=== PATIENT | female | born 1990 | race Caucasian/White ===

== ENCOUNTER 2016-09-18 11:54 | Emergency (ER) | payer MEDICAID ==
[2016-09-18] MEDS ORDERED: METOCLOPRAMIDE HCL 10 MG TABLET ONE ×2 (14:10→14:20)
[2016-09-18] MEDS ORDERED: DIPHENHYDRAMINE HCL 25 MG CAPSULE ONE (14:20)
[2016-09-18] MEDS ORDERED: TETRACAINE HCL 0.5% OPH SOLN 2 ML ONE ×2 (14:20→14:21)
== END 2016-09-18 16:00 | disposition home or self-care (01) ==
LOC: ER 11:54
DX: G43.909 Migraine, unspecified, not intractable, without status migrainosus (principal); H10.9 Unspecified conjunctivitis
CPT/HCPCS: 99283; J3490 ×3

== ENCOUNTER 2017-02-24 17:12 | Emergency (ER) | payer SELFPAY ==
--- NOTE | 2017-02-24 19:36 | ER Document Report ---
ED Medical Screen (RME) - General Chief Complaint: Abdominal Pain >50 Stated Complaint: BACK PAIN Time Seen by Provider: 02/24/17 19:35 Notes: Patient reports several days her back. She denies any vaginal symptoms or urinary symptoms. No diarrhea. She has had some nausea. She states that she has recently run out of her progesterone which she takes for "swelling". TRAVEL OUTSIDE OF THE [place] IN LAST 30 DAYS: No - Related Data Allergies/Adverse Reactions: No Known Allergies Allergy (Verified 04/10/16 14:49) Past Medical History - Past Medical History Cardiac Medical History: Denies: Hx Coronary Artery Disease, Hx Heart Attack, Hx Hypertension Pulmonary Medical History: Reports: Hx Pneumonia Denies: Hx Asthma, Hx Bronchitis, Hx COPD Neurological Medical History: Reports: Hx Migraine, Hx Seizures - as and 2013 from infection/fever//meds x 6 months post. Denies: Hx Cerebrovascular Accident Renal/ Medical History: Reports: Hx Kidney Stones. Denies: Hx Peritoneal Dialysis Musculoskeltal Medical History: Reports Hx Arthritis - left hand,knee,shoulder// 2011 last steroid inj to back Psychiatric Medical History: Reports: Hx Depression - and anxiety, PTSD Past Surgical History: Reports: Hx Orthopedic Surgery. Denies: Hx Pacemaker - Immunizations Immunizations up to date: Yes Hx Diphtheria, Pertussis, Tetanus Vaccination: Yes Physical Exam - Vital signs Vitals: Temp Pulse Resp BP Pulse Ox 98.8 F 93 16 120/77 97 02/24/17 17:31 02/24/17 17:31 02/24/17 17:31 02/24/17 17:31 02/24/17 17:31 Course - Vital Signs Vital signs: Temp Pulse Resp BP Pulse Ox 98.8 F 93 16 120/77 97 02/24/17 17:31 02/24/17 17:31 02/24/17 17:31 02/24/17 17:31 02/24/17 17:31
[2017-02-24 20:17] LABS: ABSOLUTE EOSINOPHILS # (AUTO) 0.1 10^3/uL (0.0-0.6); ABSOLUTE MONOCYTES (AUTO) 0.5 10^3/uL (0.1-1.4); BASOPHILS % (AUTO) 0.4 % (0-2); EOSINOPHILS % (AUTO) 1.8 % (0-6); HEMATOCRIT 39.1 % (36.0-47.0); HEMOGLOBIN 13.5 g/dL (12.0-15.5); HGB HCT DIFFERENCE 1.4; LYMPHOCYTES % (AUTO) 39.4 % (13-45); MEAN CORPUSCULAR HEMOGLOBIN 31.4 pg (27.0-33.4); MEAN CORPUSCULAR HGB CONC 34.6 g/dL (32.0-36.0); MEAN CORPUSCULAR VOLUME 91 fl (80-97); RED BLOOD COUNT 4.31 10^6/uL (3.72-5.28); RED CELL DISTRIBUTION WIDTH 13.1 % (11.5-14.0); SEGMENTED NEUTROPHILS % (AUTO) 52.4 % (42-78); WHITE BLOOD COUNT 7.7 10^3/uL (4.0-10.5)
[2017-02-24 20:35] LABS: ALANINE AMINOTRANSFERASE 175 U/L (9-52); ALBUMIN 4.5 g/dL (3.5-5.0); ALKALINE PHOSPHATASE 197 U/L (38-126); ANION GAP 14 (5-19); ASPARTATE AMINO TRANSFERASE 83 U/L (14-36); BILIRUBIN,DIRECT 0.3 mg/dL (0.0-0.4); BILIRUBIN,TOTAL 0.6 mg/dL (0.2-1.3); BLOOD UREA NITROGEN 18 mg/dL (7-20); CALCIUM 9.6 mg/dL (8.4-10.2); CARBON DIOXIDE 21 mmol/L (22-30); CHLORIDE 106 mmol/L (98-107); CREATININE RESULT 0.68 mg/dL (0.52-1.25); GLUCOSE 88 mg/dL (75-110); POTASSIUM 4.1 mmol/L (3.6-5.0); SODIUM 140.7 mmol/L (137-145); TOTAL PROTEIN 7.6 g/dL (6.3-8.2)
[2017-02-24] MEDS ORDERED: OXYCODONE-ACETAMINOPHEN 5-325 MG TABLET PO ONE (20:36)
[2017-02-24] MEDS ORDERED: ONDANSETRON 4 MG TAB.RAPDIS PO ONE (20:36)
--- NOTE | 2017-02-24 20:36 | ER Document Report ---
ED GI/ - General Chief Complaint: Abdominal Pain >50 Stated Complaint: BACK PAIN Time Seen by Provider: 02/24/17 19:35 Notes: Patient is a 26-year-old female presents emergency department complaining of pelvic pain 1 week. Patient states that she has a history of this previously due to her endometriosis which she has been on progesterone for for a couple years but she has not been able to hot die picker her prescription recently because of a lapse in her insurance and she cannot afford it [id number]. Patient describes the pain as a constant ache in her pelvis with associated low back pain. She denies any flank pain, painful urination, dysuria, vaginal irritation , vaginal discharge. Patient states that she does have a history of kidney stones but this feels different. Otherwise denies any nausea, vomiting, diarrhea, constipatio., Fevers or chills TRAVEL OUTSIDE OF THE [place] IN LAST 30 DAYS: No - Related Data Allergies/Adverse Reactions: No Known Allergies Allergy (Verified 04/10/16 14:49) Past Medical History - Social History Smoking Status: Current Every Day Smoker Family History: Reviewed & Not Pertinent Patient has suicidal ideation: No Patient has homicidal ideation: No - Past Medical History Cardiac Medical History: Denies: Hx Coronary Artery Disease, Hx Heart Attack, Hx Hypertension Pulmonary Medical History: Reports: Hx Pneumonia Denies: Hx Asthma, Hx Bronchitis, Hx COPD Neurological Medical History: Reports: Hx Migraine, Hx Seizures - as and 2013 from infection/fever//meds x 6 months post. Denies: Hx Cerebrovascular Accident Renal/ Medical History: Reports: Hx Kidney Stones. Denies: Hx Peritoneal Dialysis Musculoskeltal Medical History: Reports Hx Arthritis - left hand,knee,shoulder// 2012 last steroid inj to back Psychiatric Medical History: Reports: Hx Depression - and anxiety, PTSD Past Surgical History: Reports: Hx Orthopedic Surgery. Denies: Hx Pacemaker - Immunizations Immunizations up to date: Yes Hx Diphtheria, Pertussis, Tetanus Vaccination: Yes Review of Systems - Review of Systems Constitutional: No symptoms reported Cardiovascular: No symptoms reported Respiratory: No symptoms reported Gastrointestinal: No symptoms reported Genitourinary: See HPI Female Genitourinary: See HPI -: Yes All other systems reviewed and negative Physical Exam - Vital signs Vitals: Temp Pulse Resp BP Pulse Ox 98.8 F 93 16 120/77 97 02/24/17 17:31 02/24/17 17:31 02/24/17 17:31 02/24/17 17:31 02/24/17 17:31 - Notes Notes: GENERAL: Alert, interacts well. LUNGS: Clear to auscultation bilaterally, no wheezes, rales, or rhonchi. No respiratory distress. HEART: Regular rate and rhythm. No murmurs, gallops, or rubs. ABDOMEN: Soft, nondistended, nontender. No guarding, rebound, or rigidity.. Bowel sounds present in all 4 quadrants. FEMALE : Normal external exam. No evidence of lesions, lacerations, bruising or vesicles. Speculum exam normal cervix closed. No evidence of vaginal discharge with odor. No evidence of lesions. No vaginal bleeding. Bimanual exam normal no cervical motion tenderness. No adnexal mass or adnexal tenderness. EXTREMITIES: Moves all 4 extremities spontaneously. No edema, radial and dorsalis pedis pulses 2/4 bilaterally. No cyanosis. NEUROLOGICAL: Alert and oriented x4. Normal speech. PSYCH: Normal affect, normal mood. SKIN: Warm, dry, normal turgor. No rashes or lesions noted. Course - Re-evaluation Re-evalutation: 02/24/17 22:01 Patient is a 26-year-old female who is hemodynamically stable, no acute distress and afebrile. Patient's presentation today with low clinical suspicion of any acute abdominal pathology given patient has history of these symptoms before with her endometriosis and she is lapsed on a medication she takes to help with the symptoms. Also lacking evidence of an elevated white blood cell count concerning for leukocytosis. No evidence of anemia. Chemistry does reveal elevated liver enzymes but in comparison to previous evaluations in the emergency department she is a chronic history of this. When addressed at the bedside, she states that she get is aware of this but never followed up with a director of staff development. She does admit to previous history of alcohol abuse. At this time will discharge patient home with minimal pain medication and to follow-up with [facility] and GI. Patient agrees with plan. - Vital Signs Vital signs: Temp Pulse Resp BP Pulse Ox 97.8 F 110 H 16 127/84 H 98 02/24/17 22:12 02/24/17 22:12 02/24/17 22:12 02/24/17 22:12 02/24/17 22:12 - Laboratory Result Diagrams: 02/24/17 19:54 02/24/17 19:54 Laboratory results interpreted by me: 02/24/17 02/24/17 19:54 19:58 Carbon Dioxide 21 L AST 83 H ALT 175 H Alkaline Phosphatase 197 H Urine Protein 30 H Urine Urobilinogen 2.0 H Discharge - Discharge Clinical Impression: Pelvic pain Condition: Good Disposition: HOME, SELF-CARE Instructions: Endometriosis ([facility]) Additional Instructions: Please follow-up with your [facility]. Please also follow-up with the director of staff development listed on her discharge paperwork regarding your elevated liver enzymes. Prescriptions: Ibuprofen [Motrin 800 mg Tablet] 800 mg PO Q8H PRN #30 tab PRN Reason: Tramadol HCl 50 mg PO BID #10 tablet Referrals: JAJA WHITE MD [ACTIVE STAFF] - Follow up in 1 week (Gastroenterology) [facility] [Provider Group] - Follow up in 1 week
[2017-02-24 20:38] LABS: APPEARANCE,URINE SLIGHTLY-CLOUDY; BILIRUBIN,URINE NEGATIVE (NEGATIVE); CALCIUM OXALATE CRYSTALS,URINE MANY /HPF; GLUCOSE, URINE NEGATIVE (NEGATIVE); KETONES,URINE NEGATIVE (NEGATIVE); LEUKOCYTE ESTERASE,URINE NEGATIVE (NEGATIVE); NITRITE,URINE NEGATIVE (NEGATIVE); PROTEIN,URINE 30 mg/dL (NEGATIVE); URINE SPECIFIC GRAVITY 1.033
[2017-02-24 22:12] VITALS: BP 127/84
[2017-02-24 23:01] LABS: CHLAM PCR NOT DETECTED (NOT DETECT)
== END 2017-02-24 22:08 | disposition home or self-care (01) ==
LOC: ER 17:12
DX: R10.2 Pelvic and perineal pain (principal); M54.5 Low back pain; F17.200 Nicotine dependence, unspecified, uncomplicated; Z59.8 Other problems related to housing and economic circumstances; Z87.442 Personal history of urinary calculi
CPT/HCPCS: 99283; 36415; 87210; 85025; 81025; 80053; 81001; 87491; 87591; S0119

== ENCOUNTER 2017-06-28 14:59 | Emergency (ER) | payer MEDICAID ==
--- NOTE | 2017-06-28 15:10 | ER Document Report ---
ED Medical Screen (RME) - General Chief Complaint: Abdominal Pain Stated Complaint: ABDOMINAL PAIN Time Seen by Provider: 06/28/17 15:08 Mode of Arrival: Ambulatory Information source: Patient TRAVEL OUTSIDE OF THE [place] IN LAST 30 DAYS: No - HPI Patient complains to provider of: abd pain; Onset: This morning - pt is G3 approx 8 weeks along with this when she developed L lower abdominal pain earlier today. No bleeding - Related Data Allergies/Adverse Reactions: No Known Allergies Allergy (Verified 04/10/16 14:49) Past Medical History - Past Medical History Cardiac Medical History: Denies: Hx Coronary Artery Disease, Hx Heart Attack, Hx Hypertension Pulmonary Medical History: Reports: Hx Pneumonia Denies: Hx Asthma, Hx Bronchitis, Hx COPD Neurological Medical History: Reports: Hx Migraine, Hx Seizures - as infant and 2013 from infection/fever//meds x 6 months post. Denies: Hx Cerebrovascular Accident Renal/ Medical History: Reports: Hx Kidney Stones. Denies: Hx Peritoneal Dialysis Musculoskeltal Medical History: Reports Hx Arthritis - left hand,knee,shoulder// 2011 last steroid inj to back Psychiatric Medical History: Reports: Hx Depression - and anxiety, PTSD Past Surgical History: Reports: Hx Orthopedic Surgery. Denies: Hx Pacemaker - Immunizations Immunizations up to date: Yes Hx Diphtheria, Pertussis, Tetanus Vaccination: Yes Physical Exam - Vital signs Vitals: Temp Pulse Resp BP Pulse Ox 98.3 F 88 16 122/69 98 06/28/17 15:03 06/28/17 15:03 06/28/17 15:03 06/28/17 15:03 06/28/17 15:03 Course - Vital Signs Vital signs: Temp Pulse Resp BP Pulse Ox 98.3 F 88 16 122/69 98 06/28/17 15:03 06/28/17 15:03 06/28/17 15:03 06/28/17 15:03 06/28/17 15:03
[2017-06-28 16:07] LABS: APPEARANCE,URINE SLIGHTLY-CLOUDY; BILIRUBIN,URINE NEGATIVE (NEGATIVE); COLOR,URINE YELLOW; GLUCOSE, URINE NEGATIVE (NEGATIVE); KETONES,URINE 20 mg/dL (NEGATIVE); LEUKOCYTE ESTERASE,URINE TRACE (NEGATIVE); NITRITE,URINE NEGATIVE (NEGATIVE); PROTEIN,URINE 30 mg/dL (NEGATIVE); URINE SPECIFIC GRAVITY 1.033; UROBILINOGEN,URINE NEGATIVE mg/dL (<2.0)
--- NOTE | 2017-06-28 17:06 | ER Document Report ---
ED GI/ - General Chief Complaint: Abdominal Pain Stated Complaint: ABDOMINAL PAIN Time Seen by Provider: 06/28/17 15:08 Mode of Arrival: Ambulatory Notes: The patient is a 26-year-old female, ~2 months , who presents with a left lower quadrant abdominal crampiness and pain. She said the pain is worse when she bends over and lifts heavy objects at work. She denies vaginal bleeding, fevers, nausea, vomiting, vaginal discharge, dysuria or flank pain. TRAVEL OUTSIDE OF THE [place] IN LAST 30 DAYS: No - Related Data Allergies/Adverse Reactions: No Known Allergies Allergy (Verified 04/10/16 14:49) Past Medical History - General Information source: Patient - Social History Smoking Status: Current Every Day Smoker Family History: Reviewed & Not Pertinent Patient has suicidal ideation: No Patient has homicidal ideation: No - Past Medical History Cardiac Medical History: Denies: Hx Coronary Artery Disease, Hx Heart Attack, Hx Hypertension Pulmonary Medical History: Reports: Hx Pneumonia Denies: Hx Asthma, Hx Bronchitis, Hx COPD Neurological Medical History: Reports: Hx Migraine, Hx Seizures - as and 2013 from infection/fever//meds x 6 months post. Denies: Hx Cerebrovascular Accident Renal/ Medical History: Reports: Hx Kidney Stones. Denies: Hx Peritoneal Dialysis Musculoskeltal Medical History: Reports Hx Arthritis - left hand,knee,shoulder// 2012 last steroid inj to back Psychiatric Medical History: Reports: Hx Depression - and anxiety, PTSD Past Surgical History: Reports: Hx Orthopedic Surgery. Denies: Hx Pacemaker - Immunizations Immunizations up to date: Yes Hx Diphtheria, Pertussis, Tetanus Vaccination: Yes Review of Systems - Review of Systems Notes: REVIEW OF SYSTEMS: CONSTITUTIONAL: -fevers, -chills EENT: -eye pain, -difficulty swallowing, -nasal congestion CARDIOVASCULAR: -chest pain, -syncope. RESPIRATORY: -cough, -SOB GASTROINTESTINAL: +LLQ abdominal pain, -nausea, -vomiting, -diarrhea GENITOURINARY: -dysuria, -hematuria MUSCULOSKELETAL: -back pain, -neck pain SKIN: -rash or skin lesions. HEMATOLOGIC: -easy bruising or bleeding. LYMPHATIC: -swollen, enlarged glands. NEUROLOGICAL: -altered mental status or loss of consciousness, -headache, - neurologic symptoms PSYCHIATRIC: -anxiety, -depression. ALL OTHER SYSTEMS REVIEWED AND NEGATIVE. Physical Exam - Vital signs Vitals: Temp Pulse Resp BP Pulse Ox 98.3 F 88 16 122/69 98 06/28/17 15:03 06/28/17 15:03 06/28/17 15:03 06/28/17 15:03 06/28/17 15:03 - Notes Notes: PHYSICAL EXAMINATION: GENERAL: Well-appearing, well-nourished and in no acute distress. HEAD: Atraumatic, normocephalic. EYES: Pupils equal round and reactive to light, extraocular movements intact, sclera anicteric, conjunctiva are normal. ENT: nares patent, oropharynx clear without exudates. Moist mucous membranes. NECK: Normal range of motion, supple without lymphadenopathy LUNGS: Breath sounds clear to auscultation bilaterally and equal. No wheezes rales or rhonchi. HEART: Regular rate and rhythm without murmurs ABDOMEN: Soft, mild LLQ tenderness, normoactive bowel sounds. No guarding, no rebound. No masses appreciated. EXTREMITIES: Normal range of motion, no pitting or edema. No cyanosis. NEUROLOGICAL: Cranial nerves grossly intact. Normal speech, normal gait. Normal sensory and motor exams. PSYCH: Normal mood, normal affect. SKIN: Warm, Dry, normal turgor, no rashes or lesions noted. Course - Re-evaluation Re-evalutation: Patient appears well. Her abdomen is completely soft and nontender. Ultrasound shows a single intrauterine fetus with estimated gestational age of 11 weeks. Instructed her that she has a placenta previa and that this needs to be monitored during her to make sure that it resolves. Suspect abdominal muscle strain because pain is worse with flexion and extension of her abdominal wall when she lifts objects at work. Given strict return precautions and she understands. - Vital Signs Vital signs: Temp Pulse Resp BP Pulse Ox 98.3 F 88 16 122/69 98 06/28/17 15:03 06/28/17 15:03 06/28/17 15:03 06/28/17 15:03 06/28/17 15:03 - Laboratory Result Diagrams: 06/28/17 16:50 06/28/17 16:50 Laboratory results interpreted by me: 06/28/17 06/28/17 15:21 16:50 Carbon Dioxide 21 L Urine Protein 30 H Urine Ketones 20 H Ur Leukocyte Esterase TRACE H - Diagnostic Test Radiology reviewed: Image reviewed, Reports reviewed Radiology results interpreted by me: OB US: Living IUP EGA 11 weeks 0 days, small subchorionic hemorrhage is no longer identified. Placenta is developing posteriorly, currently covers the internal cervical os with placenta previa. Discharge - Discharge Clinical Impression: Abdominal pain during in first trimester, Placenta previa antepartum in first trimester Condition: Stable Disposition: HOME, SELF-CARE Additional Instructions: : You are . care is best started as early in as possible. If you're unsure about continuing this , you should discuss this with your physician or with hotel dining room cashier at [facility]. You should take only medications approved by your physician. Acetaminophen can safely be taken for minor pains. As a rule, medication for chronic conditions such as asthma or seizures can safely be continued. You should discuss with the physician every medicine you take. Any regular exercise program can be continued. Talk to your physician, however, before engaging in competitive or demanding sports. Alcohol, smoking, and "street drugs" are dangerous to your baby. Cocaine is especially dangerous. Don't use any illicit drugs! THREATENED MISCARRIAGE: You have been evaluated for a possible miscarriage. At this time, there is no indication that a miscarriage will occur. Most women with your symptoms will go on to have a perfectly normal baby. However, careful observation will be necessary. A miscarriage occurs when the fetus is abnormal. There is no medicine or treatment for it. You should rest in bed until the symptoms have resolved. Do not douche or have sex for at least a week, or until OK'd by the doctor. Call the doctor or return for re-examination if there is an increase in bleeding or cramping, or passage of tissue. FOLLOW-UP CARE: If you have been referred to a physician for follow-up care, call the physician s office for an appointment as you were instructed or within the next two days. If you experience worsening or a significant change in your symptoms (very heavy bleeding with large clots of blood, passage of tissue, more severe abdominal / pelvic pain or cramping, feeling faint or severe weakness, fever, etc.), notify the physician immediately or return to the Emergency Department at any time for re-evaluation. OBSTETRIC-GYNECOLOGIC (OB-SUBSTATION SUPERINTENDENT) PHYSICIANS IN [place]: [facility] (Formerly [facility]) [address], [place] [phone] [facility] [address] [place] [address] [phone] For active duty and dependents diagnosed with a threatened or miscarriage, you should follow up in the following manner: Standard patients who have a local civilian provider should follow up with that provider. Patients of the Family Practice Clinic should call your Team Nurse at 8: 00 am the following morning for further instructions. If you are neither a Standard patient nor a patient of the Family Practice Clinic, you should follow up at the [facility] ([facility]) . Patients already enrolled in the [facility] OB Clinic, Prime patients not assigned to the Family Practice Clinic, and Active Duty patients not assigned to [facility] should report to the [facility] Lab at 8:00 am the next morning that the [facility] OB Clinic is open and then you will be seen in the OB Clinic at 11:00 am. Referrals: YONI POLLARD PA-C [Primary Care Provider] - Follow up as needed MICHELLE ALONSO MD [ACTIVE STAFF] - Follow up as needed
--- NOTE | 2017-06-28 17:10 | RADIOLOGY REPORT (SQ) ---
EXAM DESCRIPTION: U/S [id number] TRNABD 1GES W/ODOP COMPLETED DATE/TIME: 06/28/2017 4:37 pm REASON FOR STUDY: L lower abd pain COMPARISON: OB ultrasound 06/21/2017 TECHNIQUE: Transabdominal static and realtime grayscale images acquired of the pelvis. Additional se lected spectral and color Doppler images recorded. All images stored on PACs. bHCG: None available LIMITATIONS: Ovaries not visualized due to adnexal bowel gas FINDINGS: FETUS: Living intrauterine . EGA: 11 weeks 0 days THERESA: 01/17/2018 FHR: 150 beats per minute. SUBCHORIONIC BLEED: Small subchorionic hemorrhage seen on 06/21/2017 is no longer identified. SIZE OF BLEED: Not applicable. Please note that the placenta is posterior, placental edge covers the internal cervical os, with plac enta previa. UTERUS: No masses. No anomalies. Uterus is 12 x 9 x 7 cm in size CERVICAL LENGTH: 3.3 cm Closed. RIGHT ADNEXA: Not visualized due to adnexal bowel gas LEFT ADNEXA: Not visualized due to adnexal bowel gas FREE FLUID: None. OTHER: No other significant finding. IMPRESSION: LIVING INTRAUTERINE . EGA 11 weeks 0 days Small subchorionic hemorrhage seen 06/21/2017 is no longer identified. Placenta is developing posteriorly, currently covers the internal cervical os with placenta previa. Trimester of : First - 0 to 13 weeks. TECHNICAL DOCUMENTATION: JOB ID: [id number] [employer]- All Rights Reserved Reading location - IP/workstation name: [email or web address]
[2017-06-28 17:14] LABS: ABSOLUTE BASOPHILS # (AUTO) 0.1 10^3/uL (0.0-0.2); ABSOLUTE EOSINOPHILS # (AUTO) 0.1 10^3/uL (0.0-0.6); ABSOLUTE LYMPHOCYTES (AUTO) 2.7 10^3/uL (0.5-4.7); ABSOLUTE MONOCYTES (AUTO) 0.5 10^3/uL (0.1-1.4); BASOPHILS % (AUTO) 0.7 % (0-2); EOSINOPHILS % (AUTO) 0.9 % (0-6); HEMATOCRIT 36.1 % (36.0-47.0); HEMOGLOBIN 12.5 g/dL (12.0-15.5); LYMPHOCYTES % (AUTO) 32.4 % (13-45); MEAN CORPUSCULAR HEMOGLOBIN 31.2 pg (27.0-33.4); MEAN CORPUSCULAR HGB CONC 34.5 g/dL (32.0-36.0); MEAN CORPUSCULAR VOLUME 91 fl (80-97); MONOCYTES % (AUTO) 5.5 % (3-13); PLATELET COUNT 241 10^3/uL (150-450); RED BLOOD COUNT 3.99 10^6/uL (3.72-5.28); RED CELL DISTRIBUTION WIDTH 12.7 % (11.5-14.0); SEGMENTED NEUTROPHILS % (AUTO) 60.5 % (42-78); TOTAL CELLS COUNTED % (AUTO) 100 %; WHITE BLOOD COUNT 8.3 10^3/uL (4.0-10.5)
[2017-06-28 17:40] LABS: ALANINE AMINOTRANSFERASE 49 U/L (9-52); ALBUMIN 4.3 g/dL (3.5-5.0); ALKALINE PHOSPHATASE 102 U/L (38-126); ANION GAP 12 (5-19); ASPARTATE AMINO TRANSFERASE 30 U/L (14-36); BILIRUBIN,DIRECT 0.1 mg/dL (0.0-0.4); BILIRUBIN,TOTAL 0.6 mg/dL (0.2-1.3); BLOOD UREA NITROGEN 11 mg/dL (7-20); CALCIUM 9.5 mg/dL (8.4-10.2); CARBON DIOXIDE 21 mmol/L (22-30); CHLORIDE 105 mmol/L (98-107); GLUCOSE 80 mg/dL (75-110); POTASSIUM 4.1 mmol/L (3.6-5.0); SODIUM 138.1 mmol/L (137-145); TOTAL PROTEIN 6.8 g/dL (6.3-8.2)
[2017-06-28 18:15] VITALS: BP 103/70
== END 2017-06-28 18:15 | disposition home or self-care (01) ==
LOC: ER 14:59
DX: O44.01 Complete placenta previa NOS or without hemorrhage, first trimester (principal); O26.891 Other specified pregnancy related conditions, first trimester; R10.32 Left lower quadrant pain; O99.331 Smoking (tobacco) complicating pregnancy, first trimester; Z3A.00 Weeks of gestation of pregnancy not specified
CPT/HCPCS: 36415; 76801; 80053; 81001; 84702; 85025; 99284

== ENCOUNTER 2017-10-01 13:46 | Emergency (ER) | payer MEDICAID ==
[2017-10-01] MEDS ORDERED: ALBUTEROL SULFATE 0.042% NEB (1.25 MG/3 ML) AMPUL NEB ONE (15:02)
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
[2017-10-01 16:20] VITALS: BP 102/63
== END 2017-10-01 16:19 | disposition home or self-care (01) ==
LOC: ER 13:46
DX: J45.901 Unspecified asthma with (acute) exacerbation (principal); R06.02 Shortness of breath; R06.00 Dyspnea, unspecified; O99.332 Smoking (tobacco) complicating pregnancy, second trimester; Z87.442 Personal history of urinary calculi; Z3A.15 15 weeks gestation of pregnancy
CPT/HCPCS: 94640; 99284; J3490

== ENCOUNTER 2017-11-27 15:10 | Outpatient (CLI) | payer MEDICAID ==
[2017-11-27] MEDS ORDERED: CEFTRIAXONE INJ 500 MG VIAL IV ONE (15:23)
[2017-11-27] MEDS ORDERED: RINGERS SOLUTION,LACTATED 1,000 ML IV PRN (15:24)
[2017-11-27] MEDS ORDERED: ACETAMINOPHEN 325 MG TABLET PO ONE (15:46)
[2017-11-27] MEDS ORDERED: CEFTRIAXONE SODIUM 1,000 MG in DEXTROSE 5%-WATER 50 ML IV ONE (16:00)
[2017-11-27] MEDS ORDERED: CEFTRIAXONE INJ 1000 MG VIAL ONE (16:06)
[2017-11-27] MEDS ORDERED: ACETAMINOPHEN 325 MG TABLET ONE (16:06)
[2017-11-27] MEDS ORDERED: ONDANSETRON HCL INJ/PF 4 MG/2 ML SDV ONE (16:13)
[2017-11-27 16:16] LABS: ABSOLUTE EOSINOPHILS # (AUTO) 0.1 10^3/uL (0.0-0.6); ABSOLUTE LYMPHOCYTES (AUTO) 2.2 10^3/uL (0.5-4.7); ABSOLUTE MONOCYTES (AUTO) 0.6 10^3/uL (0.1-1.4); BASOPHILS % (AUTO) 0.1 % (0-2); EOSINOPHILS % (AUTO) 1.5 % (0-6); HEMATOCRIT 28.8 % (36.0-47.0); LYMPHOCYTES % (AUTO) 24.7 % (13-45); MEAN CORPUSCULAR HEMOGLOBIN 31.4 pg (27.0-33.4); MEAN CORPUSCULAR HGB CONC 34.8 g/dL (32.0-36.0); MEAN CORPUSCULAR VOLUME 90 fl (80-97); MONOCYTES % (AUTO) 6.3 % (3-13); PLATELET COUNT 217 10^3/uL (150-450); RED BLOOD COUNT 3.19 10^6/uL (3.72-5.28); RED CELL DISTRIBUTION WIDTH 13.3 % (11.5-14.0); SEGMENTED NEUTROPHILS % (AUTO) 67.4 % (42-78); TOTAL CELLS COUNTED % (AUTO) 100 %
[2017-11-27 16:37] LABS: APPEARANCE,URINE SLIGHTLY-CLOUDY; BILIRUBIN,URINE NEGATIVE (NEGATIVE); COLOR,URINE YELLOW; GLUCOSE, URINE NEGATIVE (NEGATIVE); KETONES,URINE NEGATIVE (NEGATIVE); LEUKOCYTE ESTERASE,URINE TRACE (NEGATIVE); NITRITE,URINE NEGATIVE (NEGATIVE); PROTEIN,URINE NEGATIVE (NEGATIVE); URINE SPECIFIC GRAVITY 1.021
[2017-11-27 17:04] LABS: URINE AMPHETAMINES SCREEN NEGATIVE; URINE BARBITURATES SCREEN NEGATIVE; URINE BENZODIAZEPINES SCREEN NEGATIVE; URINE COCAINE SCREEN NEGATIVE; URINE MARIJUANA (THC) SCREEN NEGATIVE; URINE METHADONE SCREEN NEGATIVE; URINE PHENCYCLIDINE SCREEN NEGATIVE
--- NOTE | 2017-11-27 18:52 | RADIOLOGY REPORT (SQ) ---
EXAM DESCRIPTION: U/S RETROPERITON LTD COMPLETED DATE/TIME: 11/27/2017 6:30 pm REASON FOR STUDY: evaluate left kidney COMPARISON: 10/16/2015 TECHNIQUE: Dynamic and static grayscale images acquired of the kidneys and bladder and recorded on P ACS. Additional selected color Doppler and spectral images recorded. LIMITATIONS: None. FINDINGS: RIGHT KIDNEY: Normal size. Normal echogenicity. No solid or suspicious masses. Mode rate hydronephrosis. No calcifications. LEFT KIDNEY: Normal size. Normal echogenicity. No solid or suspicious masses. Mild hydronephro sis. No calcifications. BLADDER: No masses. OTHER FINDINGS: Intrauterine . IMPRESSION: Moderate right hydronephrosis. Mild left hydronephrosis. TECHNICAL DOCUMENTATION: JOB ID: [id number] [employer]- All Rights Reserved Reading location - IP/workstation name: [email or web address]
--- NOTE | 2017-11-27 19:48 | Non Stress Test Report ---
Non Stress Test Datetime Report Generated by CPN: 11/27/2017 19:48 DEMOGRAPHIC EGA NST: 32.5 INDICATION Indication for Study: Ordered by Provider MONITORING Monitor Explained: Monitor Explained; Test Explained; Patient Verbalized Understanding Time on Monitor: 11/27/2017 15:33 Time off Monitor: 11/27/2017 18:02 NST Duration: 149 NST INTERVENTIONS NST Interventions: None Physician Notified NST: A Garcia CNM BABY A: [id number] BABY A Movement : Present Contraction Frequency : none FHR Baseline : 125 Accelerations : 15X15 Decelerations : None Variability : Moderate 6-25bpm NST Review: Meets Criteria for Reactive NST NST Review and Verified By : Olena Talbot RN NST Results: Reactive NST REPORT Report Trigger: Send Report
== END 2017-11-27 19:45 | disposition home or self-care (01) ==
LOC: LC 15:10
PROVIDERS: ATTEND Student in an Organized Health Care Education/Training Program
PROC: 4A1HXCZ Monitoring of Products of Conception, Cardiac Rate, External Approach (ICD-10-PCS; principal; 2017-11-27)
DX: O47.03 False labor before 37 completed weeks of gestation, third trimester (principal); Z3A.32 32 weeks gestation of pregnancy
CPT/HCPCS: 36415; 87086; 85025; 81001; 80307; 76775; 59899; J3490; J0696; J2405

== ENCOUNTER 2017-11-28 10:28 | Outpatient (CLI) | payer MEDICAID ==
[2017-11-28] MEDS ORDERED: RINGERS SOLUTION,LACTATED 1,000 ML IV ONE (11:37)
[2017-11-28] MEDS ORDERED: CEFTRIAXONE 1 GM/D5W RTU 1 GM/50 ML RTUPB IV SCH (12:00)
[2017-11-28] MEDS ORDERED: CEFTRIAXONE SODIUM 1,000 MG in NORMAL SALINE 50 ML IV SCH (12:00)
[2017-11-28 12:15] LABS: HEMATOCRIT 29.1 % (36.0-47.0); HEMOGLOBIN 10.1 g/dL (12.0-15.5); MEAN CORPUSCULAR HEMOGLOBIN 31.6 pg (27.0-33.4); MEAN CORPUSCULAR HGB CONC 34.8 g/dL (32.0-36.0); MEAN CORPUSCULAR VOLUME 91 fl (80-97); PLATELET COUNT 207 10^3/uL (150-450); RED CELL DISTRIBUTION WIDTH 13.4 % (11.5-14.0); WHITE BLOOD COUNT 7.1 10^3/uL (4.0-10.5)
[2017-11-28] MEDS ORDERED: ACETAMINOPHEN 325 MG TABLET ONE (12:34)
[2017-11-28] MEDS ORDERED: ACETAMINOPHEN 325 MG TABLET PO ONE (13:00)
--- NOTE | 2017-11-28 13:42 | RADIOLOGY REPORT (SQ) ---
EXAM DESCRIPTION: U/S OB LIMITED COMPLETED DATE/TIME: 11/28/2017 1:34 pm REASON FOR STUDY: abruption and placenta and pain all over COMPARISON: None. TECHNIQUE: Limited transvaginal grayscale ultrasound for evaluation of specific requested obstetrica l parameters. LIMITATIONS: None. FINDINGS: CERVICAL LENGTH: 4.1 cm Closed. HUDSON: 11.8 cm. FHR: 153 beats per minute. PRESENTATION: Cephalic. OTHER: Posterior low lying placenta. IMPRESSION: LIMITED OBSTETRICAL ULTRASOUND WITH MEASURED PARAMETERS DELINEATED ABOVE. Posterior low lying placenta. Trimester of : Third trimester - 28 weeks to delivery. TECHNICAL DOCUMENTATION: JOB ID: [id number] [employer]- All Rights Reserved Reading location - IP/workstation name: [email or web address]
--- NOTE | 2017-11-28 14:19 | L&D Progress Notes ---
PROGRESS NOTES Datetime Report Generated by CPN: 11/28/2017 14:19 PROGRESS NOTE Comment: No uc's, Cat 1 strip Sono nl, low lying placenta, no leaking of fluid CBC normal, CBC normal yesterday, UA culture in October was negative so she never had a UTI, urine culture done yesterday is no growth adter 24 hours abd soft, has not c/o about pain Dr. Obando in room to check pt = pelvic pressure due to pain of baby's head and multiparity Pt has hx of PTSD, anxiety and depression D/C home, increase water, maternity belt, out of work until Friday Keep appt at office SIGNATURE SIGNATURE: ,[id number] SIGNATURE: ,[id number] Assignment: Madison Obando MD Signature: with User ID: [email or web address] : with User ID: [email or web address]
--- NOTE | 2017-11-28 14:47 | Non Stress Test Report ---
Non Stress Test Datetime Report Generated by CPN: 11/28/2017 14:46 DEMOGRAPHIC EGA NST: 32.6 INDICATION Indication for Study: Ordered by Provider Indication for Study (NST) Other: R/O PYELONEPHRITIS MONITORING Monitor Explained: Monitor Explained; Test Explained; Patient Verbalized Understanding Time on Monitor: 11/28/2017 10:40 Time off Monitor: 11/28/2017 12:56 NST Duration: 136 NST INTERVENTIONS NST Interventions: PO Hydration; Reposition Patient Physician Notified NST: Dr. Obando BABY A: [id number] BABY A Movement : Present Contraction Frequency : NONE FHR Baseline : 135 Accelerations : 15X15 Decelerations : None Variability : Moderate 6-25bpm NST Review: Meets Criteria for Reactive NST NST Review and Verified By : ISABELA Hoyt Results: Reactive NST REPORT Report Trigger: Send Report
== END 2017-11-28 14:26 | disposition home or self-care (01) ==
LOC: LC 10:28
PROVIDERS: ATTEND Obstetrics & Gynecology
PROC: 4A1HXCZ Monitoring of Products of Conception, Cardiac Rate, External Approach (ICD-10-PCS; principal; 2017-11-28)
DX: O47.03 False labor before 37 completed weeks of gestation, third trimester (principal); Z3A.32 32 weeks gestation of pregnancy
CPT/HCPCS: 59025; 36415; 85027; 76815; J3490; J0696

== ENCOUNTER 2018-01-12 18:25 | Outpatient (CLI) | payer MEDICAID ==
[2018-01-12 19:01] LABS: APPEARANCE,URINE CLOUDY; BILIRUBIN,URINE NEGATIVE (NEGATIVE); COLOR,URINE YELLOW; GLUCOSE, URINE NEGATIVE (NEGATIVE); KETONES,URINE NEGATIVE (NEGATIVE); LEUKOCYTE ESTERASE,URINE SMALL (NEGATIVE); NITRITE,URINE NEGATIVE (NEGATIVE); PROTEIN,URINE NEGATIVE (NEGATIVE); URINE SPECIFIC GRAVITY 1.012; UROBILINOGEN,URINE NEGATIVE mg/dL (<2.0)
[2018-01-12 19:30] LABS: URINE AMPHETAMINES SCREEN NEGATIVE; URINE BARBITURATES SCREEN NEGATIVE; URINE BENZODIAZEPINES SCREEN NEGATIVE; URINE COCAINE SCREEN NEGATIVE; URINE MARIJUANA (THC) SCREEN NEGATIVE; URINE METHADONE SCREEN NEGATIVE; URINE PHENCYCLIDINE SCREEN NEGATIVE
--- NOTE | 2018-01-12 20:22 | Non Stress Test Report ---
Non Stress Test Datetime Report Generated by CPN: 01/12/2018 20:22 DEMOGRAPHIC EGA NST: 39.2 INDICATION Indication for Study: Ordered by Provider MONITORING Monitor Explained: Monitor Explained; Test Explained; Patient Verbalized Understanding Time on Monitor: 01/12/2018 18:43 Time off Monitor: 01/12/2018 19:56 NST Duration: 73 NST INTERVENTIONS NST Interventions: PO Hydration; Reposition Patient; Other Physician Notified NST: Dr. Younger Physician Notified NST: Dr. Younger-Eure BABY A: [id number] BABY A Movement : Present Contraction Frequency : None FHR Baseline : 140 Accelerations : 15X15 Decelerations : None Variability : Moderate 6-25bpm NST Review: Meets Criteria for Reactive NST NST Review and Verified By : ISABELA Somers Results: Reactive NST REPORT Report Trigger: Send Report
== END 2018-01-12 20:36 | disposition home or self-care (01) ==
LOC: LC 18:25
PROVIDERS: ATTEND Obstetrics & Gynecology
PROC: 4A1HXCZ Monitoring of Products of Conception, Cardiac Rate, External Approach (ICD-10-PCS; principal; 2018-01-12)
DX: Z34.93 Encounter for supervision of normal pregnancy, unspecified, third trimester (principal)
CPT/HCPCS: 59025; 80307; 81005

== ENCOUNTER 2018-01-20 20:08 | Inpatient (IN) | payer MEDICAID ==
[2018-01-20 20:44] LABS: APPEARANCE,URINE CLOUDY; BILIRUBIN,URINE NEGATIVE (NEGATIVE); COLOR,URINE YELLOW; GLUCOSE, URINE NEGATIVE (NEGATIVE); KETONES,URINE NEGATIVE (NEGATIVE); LEUKOCYTE ESTERASE,URINE SMALL (NEGATIVE); NITRITE,URINE NEGATIVE (NEGATIVE); PROTEIN,URINE 30 mg/dL (NEGATIVE); URINE SPECIFIC GRAVITY 1.024
[2018-01-20] MEDS ORDERED: RINGERS SOLUTION,LACTATED 1,000 ML IV PRN (20:51)
[2018-01-20] MEDS ORDERED: OXYTOCIN/NORMAL SALINE 20 UNIT/1,000 ML RTUINJ IV PRN (20:55)
[2018-01-20 21:08] LABS: ABSOLUTE BASOPHILS # (AUTO) 0.1 10^3/uL (0.0-0.2); ABSOLUTE EOSINOPHILS # (AUTO) 0.1 10^3/uL (0.0-0.6); ABSOLUTE LYMPHOCYTES (AUTO) 2.3 10^3/uL (0.5-4.7); ABSOLUTE MONOCYTES (AUTO) 0.6 10^3/uL (0.1-1.4); ABSOLUTE NEUT (AUTO) 6.1 10^3/uL (1.7-8.2); BASOPHILS % (AUTO) 0.6 % (0-2); HEMATOCRIT 31.3 % (36.0-47.0); HEMOGLOBIN 11.2 g/dL (12.0-15.5); LYMPHOCYTES % (AUTO) 24.9 % (13-45); MEAN CORPUSCULAR HEMOGLOBIN 31.7 pg (27.0-33.4); MEAN CORPUSCULAR HGB CONC 35.6 g/dL (32.0-36.0); MEAN CORPUSCULAR VOLUME 89 fl (80-97); MONOCYTES % (AUTO) 6.1 % (3-13); PLATELET COUNT 189 10^3/uL (150-450); RED BLOOD COUNT 3.52 10^6/uL (3.72-5.28); RED CELL DISTRIBUTION WIDTH 13.9 % (11.5-14.0); SEGMENTED NEUTROPHILS % (AUTO) 67.4 % (42-78); TOTAL CELLS COUNTED % (AUTO) 100 %
[2018-01-20 21:21] LABS: URINE AMPHETAMINES SCREEN NEGATIVE; URINE BARBITURATES SCREEN NEGATIVE; URINE COCAINE SCREEN NEGATIVE; URINE MARIJUANA (THC) SCREEN NEGATIVE; URINE METHADONE SCREEN NEGATIVE; URINE PHENCYCLIDINE SCREEN NEGATIVE
[2018-01-20 21:26] LABS: URINE BENZODIAZEPINES SCREEN UNCONFIRMED POSITIVE
[2018-01-20] MEDS ORDERED: LIDOCAINE 1% INJ-PF (10 MG/ML) 30 ML SDV ONE (21:27)
[2018-01-20] MEDS ORDERED: OXYTOCIN/NORMAL SALINE 20 UNIT/1,000 ML RTUINJ ONE (21:27)
[2018-01-20] MEDS ORDERED: MISOPROSTOL 0.2 MG TABLET ONE (21:27)
[2018-01-20] MEDS ORDERED: ONDANSETRON HCL INJ/PF 4 MG/2 ML SDV IV ONE (22:38)
[2018-01-20] MEDS ORDERED: ONDANSETRON HCL INJ/PF 4 MG/2 ML SDV ONE (22:39)
[2018-01-20] MEDS ORDERED: EPHEDRINE SULFATE INJ 50 MG/1 ML AMPULE ONE (23:10)
[2018-01-20] MEDS ORDERED: BUPIVACAINE HCL 0.5 % INJ/PF 30 ML SDV ONE (23:11)
[2018-01-20] MEDS ORDERED: FENTANYL/BUPIVACAINE/NS/PF 300 MCG/150 ML RTUINJ EPI ONE (23:11)
[2018-01-20] MEDS ORDERED: ACETAMINOPHEN 325 MG TABLET ONE (23:56)
[2018-01-20] MEDS ORDERED: ACETAMINOPHEN 325 MG TABLET PO ONE (23:58)
--- NOTE | 2018-01-21 00:20 | Admission Physical ---
Datetime Report Generated by CPN: 01/21/2018 00:20 CURRENT ADMISSION Chief Complaint: Uterine Contractions; Suspected Ruptured Membranes Indication for Induction: Postterm; PROM Admit Impression : Term, Intrauterine ; No Active Labor; Ruptured Membranes Admit Plan: Admit to Unit; Initiate Labor Induction Protocol ALLERGIES Medication Allergies: No Medication Allergies: latex (01/12/2018) Latex: No Latex Allergies Food Allergies: none Environmental Allergies: none OBSTETRICAL HISTORY EDC: 01/17/2018 00:00 : 5 Para: 2 Term: 2 : 0 SAB: 1 IAB: 1 Ectopic: 0 Livin Cesareans: 0 VBACs: 0 Multiple Births: 0 Gestational Diabetes: No Rh Sensitization: No Incompetent Cervix: No MIGUEL ÁNGEL: No Infertility: No ART Treatment: No Uterine Anomaly: No IUGR: No Hx Previous C/S: No Macrosomia: No Hx Loss/Stillborn: No PIH: No Hx : No Placenta Previa/Abruption: Yes Depression/PP Depression: No PTL/PROM: No Post Hemorrhage: No Current Procedures: Ultrasound; NST Obstetrical History Comments: G1- 2006 G2- 2010 G3- 2010 IAB G4- 2014 SAB G5- Current, resolved placenta abrubtion in first trimester. SEE RECORDS Alcohol: No Marijuana : No Cocaine: No Other Illicit Drugs: No Cigarettes: Current Everyday Smoker. [id number] Cigarette Frequency: 5 - 10 per day Advised to Stop: Yes MEDICAL HISTORY Diabetes: No Blood Transfusion: No Pulmonary Disease (Asthma, TB): Yes Breast Disease: No Hypertension: No [employer] Surgery: No Heart Disease: No Hosp/Surgery: Yes Autoimmune Disorder: No Anesthetic Complications: No Kidney Disease: No Abnormal Pap Smear: No Neuro/Epilepsy: No Psychiatric Disorders: Yes Other Medical Diseases: Yes Hepatitis/Liver Disease: No Significant Family History: No Varicosities/Phlebitis: No Trauma/Violence : No Thyroid Dysfunction: No Medical History Comments: DEPRESSION; PTSD;OBESITY INFECTIOUS HISTORY Gonorrhea: No Genital Herpes: No Chlamydia: No Tuberculosis: No Syphilis: No Hepatitis: No HIV/AIDS Exposure: No Rash or Viral Illness: No HPV: No PHYSICAL EXAM General: Normal HEENT: Normal Neurologic: Normal Thyroid: Deferred Heart: Normal Lungs: Normal Breast: Deferred Back: Normal Abdomen: Normal Genitourinary Exam: Normal Extremities: Normal DTRs: Normal Pelvic Type: Adequate Vital Signs: Reviewed VAGINAL EXAM Dilatation: 3 Effacement: 50 Station: -2 Contraction Comments: irreg MEMBRANES Membranes: Ruptured Amniotic Fluid Color: Clear FETUS A EGA: 40.4 Monitoring: External US FHR- Baseline: 130 Variability: Moderate 6-25bpm Accelerations: 15X15 Decelerations: None FHR Category: Category I Presentation: Vertex Admit Comment: 27yo at 40+3ega presents with ROM at 1930, clear fluid. NOt in labor - will begin pitocin. GBS negative. Pt with prior child with thalassemia - this baby has different FOB. Depression/Anxiety/PTSD - on klonipin. ASCUS pap with HRHPV - colpo planned for pp. Anticipate . PLANS FOR LABOR AND DELIVERY Labor and Delivery: None Pain Management: Epidural Feeding Preference: Both Benefit of Breast Feed Discussed: Yes INFORMED CONSENT Informed Consent Obtained: Vaginal Delivery; Induction of Labor; Risks, Benefits and Alternatives Discussed Signature: with User ID: [email or web address]
[2018-01-21] MEDS ORDERED: DIPHENHYDRAMINE HCL 25 MG CAPSULE PO PRN (03:25)
[2018-01-21] MEDS ORDERED: PROMETHAZINE HCL INJ 25 MG/1 ML VIAL IV PRN (03:25)
[2018-01-21] MEDS ORDERED: PSEUDOEPHEDRINE HCL 30 MG TABLET PO PRN (03:25)
[2018-01-21] MEDS ORDERED: ZOLPIDEM TARTRATE 5 MG TABLET PO PRN (03:25)
[2018-01-21] MEDS ORDERED: ACETAMINOPHEN WITH CODEINE #3 TABLET PO PRN (03:25)
[2018-01-21] MEDS ORDERED: PROMETHAZINE HCL 25 MG TABLET PO PRN (03:25)
[2018-01-21] MEDS ORDERED: ACETAMINOPHEN 325 MG TABLET PO PRN (03:25)
[2018-01-21] MEDS ORDERED: NA PHOS,M-B/NA PHOS,DI-BA (ADULT) 133 ML ENEMA PR PRN (03:25)
[2018-01-21] MEDS ORDERED: MEASLES,MUMPS&RUBELLA VACC/PF 0.5 ML VIAL SUBCUT PRN (03:25)
[2018-01-21] MEDS ORDERED: DIBUCAINE 1% OINTMENT 28 GM TP PRN (03:25)
[2018-01-21] MEDS ORDERED: GLYCERIN/WITCH HAZEL LEAF 1 EACH MED..PAD TP PRN (03:25)
[2018-01-21] MEDS ORDERED: PROMETHAZINE HCL 25 MG SUPP.RECT PR PRN (03:25)
[2018-01-21] MEDS ORDERED: MAGNESIUM HYDROXIDE SUSP 30 ML UDCUP PO PRN ×2 (03:25→19:52)
[2018-01-21] MEDS ORDERED: BENZOCAINE/MENTHOL AEROSOL SPRAY 56 ML TOP PRN (03:25)
[2018-01-21] MEDS ORDERED: OXYTOCIN/NORMAL SALINE 20 UNIT/1,000 ML RTUINJ IV PRN (03:25)
--- NOTE | 2018-01-21 05:28 | Delivery Summary ---
Del Sum A-C Datetime Report Generated by CPN: 01/21/2018 05:27 DELIVERY PERSONNEL DELIVERY PERSONNEL: [id number] Delivery Doctor:: Harriet Blankenship MD Anesthesiologist:: Juan Wilson MD Labor and Delivery Nurse:: Geraldine Oquendo RN Nursery Nurse:: Alejandra Lutz RN MSN MATERNAL INFORMATION Delivery Anesthesia: Epidural Medications After Delivery: Pitocin Drip 20 Units/1000ml NSS Maternal Complications: None Provider Comments: VMI delivered in ELVI presentation. No nuchal cord. Shoulders and body delivered without difficulty. Cord doubly clamped and cut and to maternal abd. Placenta delivered intact spontaneously. FF at U. No perineal lacerations. Mother and baby stable upon provider leaving the room. LABOR SUMMARY EDC: 01/17/2018 00:00 No. Babies in Womb: 1 Attempted: No Labor Anesthesia: Epidural LABOR INFORMATION Onset of Labor: 01/21/2018 23:47 Complete Dilatation: 01/21/2018 02:42 Oxytocin: Augmentation Group B Beta Strep: Negative Antibiotics # of Doses: 0 Antibiotics Time of Last Dose: N/A Name of Antibiotic Given: N/A Steroids Given: None Reason Steroids Not Administered: Not Applicable MEMBRANES Membranes Rupture Method: Spontaneous Rupture of Membranes: 01/20/2018 19:00 Length of Rupture (hr): 7.78 Amniotic Fluid Color: Moderate Meconium Amniotic Fluid Amount: Small Amniotic Fluid Odor: Normal STAGES OF LABOR Stage 1 hr: -21 Stage 1 min: -5 Stage 2 hr: 0 Stage 2 min: 5 Stage 3 hr: 0 Stage 3 min: 2 Total Time in Labor hr: -20 Total Time in Labor min: -58 VAGINAL DELIVERY Episiotomy: None Laceration #1: None Laceration Extension #1: N/A Laceration Repair: Not Applicable Sponge Count Correct: N/A Sharps Count Correct: N/A CSECTION DELIVERY Primary Indication: N/A Secondary Indication: N/A CSection Incidence: N/A Labor: N/A Elective: N/A CSection Incision: N/A BABY A INFORMATION Delivery Date/Time: 01/21/2018 02:47 Method of Delivery: Vaginal Born in Route : No : N/A Forceps: N/A Vacuum Extraction: N/A Shoulder Dystocia : No PRESENTATION/POSITION BABY A Presentation: Cephalic Cephalic Presentation: Vertex Vertex Position: Left Occipital Anterior Breech Presentation: N/A PLACENTA INFORMATION BABY A Placenta Delivery Time : 01/21/2018 02:49 Placenta Method of Delivery: Spontaneous Placenta Status: Delivered SCORES BABY A Heart Rate 1 min: >100 bpm Resp Effort 1 min: Good Cry Reflex Irritability 1 min: Cough or Sneeze or Pulls Away Muscle Tone 1 min: Active Motion Color 1 min: Blue/Pale SCORE 1 MIN: 8 Heart Rate 5 min: >100 bpm Resp Effort 5 min: Good Cry Reflex Irritability 5 min: Cough or Sneeze or Pulls Away Muscle Tone 5 min: Active Motion Color 5 min: Body [place], Extremities Blue SCORE 5 MIN: 9 INFORMATION BABY A Gestational Age at Delivery: 40.4 Gestational Status: Full Term- 39- 40.6 Weeks Outcome : Liveborn Condition : Stable Sex: Male IDENTIFICATION BABY A Infant Verification Date/Time: 01/21/2018 03:08 ID Band Number: [id number] Mother's Name Verified: Yes Infant RN Verifying Infant: Marichuy Oquendo RN/ Gi Ralph RN WEIGHT/LENGTH BABY A Birthweight (gm): 3230 Infant Weight (lb): 7 Infant Weight (oz): 2 Length (in): 20.00 Length (cm): 50.80 CORD INFORMATION BABY A No. Cord Vessels: 3 Nuchal Cord : N/A Cord Blood Taken: Yes-For Storage (Mom's Blood type +) Suction: Mouth; Nose ASSESSMENT BABY A Skin to Skin: Yes Skin to Skin Time (min): 30 BABY B INFORMATION : N/A SIGNATURES Signature: with User ID: [email or web address]
--- NOTE | 2018-01-21 06:02 | Warning Signs in Babies ---
VOD Warning Signs Datetime Report Generated by [facility]: 01/21/2018 06:02 VOD#[id number] -Warning Signs in Babies: Viewed with Parent(s)/Family (01/21/2018 06:00:Geraldine Oquendo RN)
[2018-01-21] MEDS ORDERED: IBUPROFEN 800 MG TABLET ONE (06:03)
[2018-01-21] MEDS: IBUPROFEN 800 MG TABLET PO SCH ×3 (06:15→21:59)
[2018-01-21] MEDS ORDERED: ACETAMINOPHEN WITH CODEINE #3 TABLET ONE (08:31)
[2018-01-21] MEDS: ACETAMINOPHEN WITH CODEINE #3 TABLET PO PRN ×3 (08:35→16:27)
[2018-01-21] MEDS ORDERED: DOCUSATE SODIUM 100 MG CAPSULE ONE (09:59)
[2018-01-21] MEDS ORDERED: SENNOSIDES/DOCUSATE 8.6-50 MG 1 EACH TABLET ONE (09:59)
[2018-01-21] MEDS ORDERED: FAMOTIDINE 20 MG TABLET ONE (09:59)
[2018-01-21] MEDS ORDERED: PRENATAL VITAMIN W DHA CAPSULE PO ONE (09:59)
[2018-01-21] MEDS ORDERED: SERTRALINE HCL 50 MG TABLET ONE (09:59)
[2018-01-21] MEDS ORDERED: FERROUS SULFATE 325 MG TABLET PO ONE (10:00)
[2018-01-21] MEDS: FERROUS SULFATE 325 MG TABLET PO SCH ×2 (10:06→17:20)
[2018-01-21] MEDS: PRENATAL VITAMIN W DHA CAPSULE PO SCH (10:06)
[2018-01-21] MEDS: SENNOSIDES/DOCUSATE 8.6-50 MG 1 EACH TABLET PO SCH (10:06)
[2018-01-21] MEDS: DOCUSATE SODIUM 100 MG CAPSULE PO SCH ×2 (10:07→17:20)
[2018-01-21] MEDS: SERTRALINE HCL 50 MG TABLET PO SCH (10:07)
[2018-01-21] MEDS: FAMOTIDINE 20 MG TABLET PO SCH ×2 (10:07→21:59)
--- NOTE | 2018-01-21 12:57 | PDOC PROGRESS REPORT ---
Subjective-OB Progress Note for:: 01/21/18 Subjective: 27yo G5 now P3 s/p 10hrs pp. Ambulating and voiding without difficulty. Denies concerns at this time. Physical Exam (OB) Vital Signs: Intake & Output 01/20/18 01/21/18 01/22/18 06:59 06:59 06:59 Weight 107.4 kg - General General Appearance: Appears well In distress: None - PIH/Pre-Eclampsia Headache: Absent Epigastric Pain: No Visual Changes: No - Episiotomy/Laceration Site Condition: N/A - Lochia Lochia Amount: Scant < 10 ml Lochia Color: Rubra/Red - Respiratory Respiratory Status: No respiratory distress - Extremities Upper extremity: Normal inspection Lower extremities: Normal inspection - Neurological Cognition: Normal Orientation: AAOx4 - Psychological Associated symptoms: Normal affect, Normal mood Objective-Diagnostic Laboratory: 01/20/18 20:57 01/20/18 01/20/18 01/20/18 20:20 20:57 20:57 WBC 9.0 RBC 3.52 L Hgb 11.2 L Hct 31.3 L MCV 89 MCH 31.7 MCHC 35.6 RDW 13.9 Plt Count 189 Seg Neutrophils % 67.4 Lymphocytes % 24.9 Monocytes % 6.1 Eosinophils % 1.0 Basophils % 0.6 Absolute Neutrophils 6.1 Absolute Lymphocytes 2.3 Absolute Monocytes 0.6 Absolute Eosinophils 0.1 Absolute Basophils 0.1 Urine Color YELLOW Urine Appearance CLOUDY Urine pH 6.0 Ur Specific [place] 1.024 Urine Protein 30 H Urine Glucose (UA) NEGATIVE Urine Ketones NEGATIVE Urine Blood MODERATE H Urine Nitrite NEGATIVE Ur Leukocyte Esterase SMALL H Blood Type A POSITIVE Antibody Screen NEGATIVE Assessment and Plan(PN) - Assessment and Plan (1) Vaginal delivery Is this a current diagnosis for this admission?: Yes Plan: routine pp care. (2) Meconium in amniotic fluid Is this a current diagnosis for this admission?: Yes Plan: delivered (3) Premature rupture of membranes Qualifiers: PROM onset of labor timing: unspecified duration between rupture of membranes and onset of labor PROM gestational age: full term Qualified Code( s): O42.92 - Full-term premature rupture of membranes, unspecified as to length of time between rupture and onset of labor Is this a current diagnosis for this admission?: Yes Plan: delivered (4) Asthma Qualifiers: Asthma severity: unspecified severity Asthma persistence: unspecified Asthma complication type: unspecified Qualified Code(s): J45.909 - Unspecified asthma, uncomplicated Is this a current diagnosis for this admission?: Yes Plan: monitor for s/s of exacerbation (5) Qualifiers: Weeks of gestation: 40 weeks Qualified Code(s): Z3A.40 - 40 weeks gestation of Is this a current diagnosis for this admission?: Yes Plan: delivered - Time Spent with Patient Time with patient: Less than 15 minutes Smoking Education Provided: Over 3 minutes Medications reviewed and adjusted accordingly: Yes - Disposition Anticipated Discharge: Home Within: within 48 hours
[2018-01-21] MEDS ORDERED: BISACODYL 10 MG SUPP.RECT PR PRN (19:52)
[2018-01-22 07:12] LABS: HEMATOCRIT 30.4 % (36.0-47.0); HEMOGLOBIN 10.5 g/dL (12.0-15.5); MEAN CORPUSCULAR HEMOGLOBIN 31.1 pg (27.0-33.4); MEAN CORPUSCULAR HGB CONC 34.5 g/dL (32.0-36.0); MEAN CORPUSCULAR VOLUME 90 fl (80-97); PLATELET COUNT 177 10^3/uL (150-450); RED BLOOD COUNT 3.38 10^6/uL (3.72-5.28); RED CELL DISTRIBUTION WIDTH 14.4 % (11.5-14.0); WHITE BLOOD COUNT 7.4 10^3/uL (4.0-10.5)
[2018-01-22] MEDS: IBUPROFEN 800 MG TABLET PO SCH ×2 (07:12→13:31)
[2018-01-22] MEDS ORDERED: MEASLES,MUMPS&RUBELLA VACC/PF 0.5 ML VIAL SUBCUT PRN (09:30)
[2018-01-22] MEDS ORDERED: PROMETHAZINE HCL INJ 25 MG/1 ML VIAL IV PRN (09:30)
--- NOTE | 2018-01-22 10:07 | PDOC PROGRESS REPORT ---
Subjective-OB Progress Note for:: 01/22/18 Subjective: Ready for discharge. Physical Exam (OB) Vital Signs: Temp Pulse Resp BP Pulse Ox 98.0 F 89 20 134/82 H 99 01/22/18 09:41 01/22/18 09:41 01/22/18 09:41 01/22/18 09:41 01/22/18 09:41 Intake & Output 01/21/18 01/22/18 01/23/18 06:59 06:59 06:59 Weight 107.4 kg - PIH/Pre-Eclampsia Headache: Absent Epigastric Pain: No Visual Changes: No - Lochia Lochia Amount: Scant < 10 ml Lochia Color: Rubra/Red - Abdomen Description: Soft, Round Hernia Present: No Bowel Sounds: Normoactive Flatus Presence: Present Stool: Yes Fundal Description: Firm, Midline Fundal Height: u/u - u/2 Objective-Diagnostic Laboratory: 01/22/18 07:00 01/22/18 07:00 WBC 7.4 RBC 3.38 L Hgb 10.5 L Hct 30.4 L MCV 90 MCH 31.1 MCHC 34.5 RDW 14.4 H Plt Count 177 Assessment and Plan(PN) - Time Spent with Patient Smoking Education Provided: Over 3 minutes Medications reviewed and adjusted accordingly: Yes - Disposition Anticipated Discharge: Home
--- NOTE | 2018-01-22 10:19 | PDOC DISCHARGE SUMMARY ---
Final Diagnosis Discharge Date: 01/22/18 - Final Diagnosis (1) Meconium in amniotic fluid Is this a current diagnosis for this admission?: Yes (2) Premature rupture of membranes Is this a current diagnosis for this admission?: Yes (3) Vaginal delivery Is this a current diagnosis for this admission?: Yes (4) Asthma Is this a current diagnosis for this admission?: Yes (5) Is this a current diagnosis for this admission?: Yes Discharge Data - Discharge Medication Prescriptions: Ferrous Sulfate [Feosol 325 mg Tablet] 325 mg PO DAILY #30 tablet Home Medications: Pnv No.95/Ferrous Fum/Folic AC [ Multivitamin Tablet] 1 tab PO DAILY Clonazepam [Klonopin 0.5 mg Tablet Rapid Dissolve] 1 tab PO TID 10/21/17 Albuterol Sulfate [Proair HFA Inhalation Aerosol 8.5 gm MDI] 2 puff IH PRN PRN 01/12/18 Sertraline HCl [Zoloft 50 mg Tablet] 50 mg PO DAILY 01/12/18 Ferrous Sulfate [Feosol 325 mg Tablet] 325 mg PO DAILY #30 tablet 01/22/18 Gestational Age: 40.4 wks Reason(s) for Admission: PROM Procedures: Ultrasound Intrapartum Procedure(s): Spontaneous Vaginal Delivery - [place] Data Baby 1 Male at 1 minute: 8 at 5 minutes: 9 Weight: 3.232 kg Home with Mother: Yes Complications: No - Diagnosis Test Laboratory: Temp Pulse Resp BP Pulse Ox 98.0 F 89 20 134/82 H 99 01/22/18 09:41 01/22/18 09:41 01/22/18 09:41 01/22/18 09:41 01/22/18 09:41 01/20/18 01/20/18 01/22/18 20:20 20:57 07:00 RBC 3.52 L 3.38 L Hgb 11.2 L 10.5 L Hct 31.3 L 30.4 L Urine Opiates Screen NEGATIVE - Discharge information/Instructions Discharge Activity: Activity As Tolerated, Balance Activity w/Rest, Pelvic Rest , Slowly Increase Activity, No tub bath Discharge Diet: Regular Disposition: HOME, SELF-CARE Follow up with: [facility] in: 4, Weeks
[2018-01-22] MEDS: PRENATAL VITAMIN W DHA CAPSULE PO SCH (10:28)
[2018-01-22] MEDS: DOCUSATE SODIUM 100 MG CAPSULE PO SCH ×2 (10:28→17:23)
[2018-01-22] MEDS: SENNOSIDES/DOCUSATE 8.6-50 MG 1 EACH TABLET PO SCH (10:28)
[2018-01-22] MEDS: FERROUS SULFATE 325 MG TABLET PO SCH ×2 (10:29→17:22)
[2018-01-22] MEDS: FAMOTIDINE 20 MG TABLET PO SCH (10:29)
[2018-01-22] MEDS: SERTRALINE HCL 50 MG TABLET PO SCH (10:34)
[2018-01-22] MEDS: ACETAMINOPHEN WITH CODEINE #3 TABLET PO PRN (10:34)
[2018-01-22 11:02] VITALS: BP 119/61
== END 2018-01-22 18:00 | disposition home or self-care (01) | DRG 775 ==
LOC: LC 20:08 → LR 20:47 → 2S 01-21 10:30
PROVIDERS: ADMIT Student in an Organized Health Care Education/Training Program; ATTEND Student in an Organized Health Care Education/Training Program
PROC: 10E0XZZ Delivery of Products of Conception, External Approach (ICD-10-PCS; principal; 2018-01-21)
DX: O48.0 Post-term pregnancy (principal); O99.344 Other mental disorders complicating childbirth; F41.8 Other specified anxiety disorders; O99.334 Smoking (tobacco) complicating childbirth; F17.210 Nicotine dependence, cigarettes, uncomplicated; O77.0 Labor and delivery complicated by meconium in amniotic fluid; O42.02 Full-term premature rupture of membranes, onset of labor within 24 hours of rupture; O99.52 Diseases of the respiratory system complicating childbirth; J45.998 Other asthma; Z3A.40 40 weeks gestation of pregnancy; Z37.0 Single live birth
CPT/HCPCS: 36415; 80307; 81005; 84112; 85025; 85027; 86592; 86850; 86900; 86901; G0480; J2405; J2590; J3010; J3490

== ENCOUNTER 2018-04-23 09:57 | Day surgery (SDC) | payer MEDICAID ==
[2018-04-21 12:33] LABS: HEMATOCRIT 39.2 % (36.0-47.0); HEMOGLOBIN 13.3 g/dL (12.0-15.5); MEAN CORPUSCULAR HEMOGLOBIN 30.6 pg (27.0-33.4); MEAN CORPUSCULAR HGB CONC 33.9 g/dL (32.0-36.0); MEAN CORPUSCULAR VOLUME 90 fl (80-97); PLATELET COUNT 270 10^3/uL (150-450); RED BLOOD COUNT 4.34 10^6/uL (3.72-5.28); RED CELL DISTRIBUTION WIDTH 13.6 % (11.5-14.0)
[2018-04-21 12:39] LABS: APPEARANCE,URINE SLIGHTLY-CLOUDY; BILIRUBIN,URINE NEGATIVE (NEGATIVE); COLOR,URINE YELLOW; GLUCOSE, URINE NEGATIVE (NEGATIVE); KETONES,URINE NEGATIVE (NEGATIVE); LEUKOCYTE ESTERASE,URINE NEGATIVE (NEGATIVE); NITRITE,URINE NEGATIVE (NEGATIVE); PROTEIN,URINE NEGATIVE (NEGATIVE); URINE SPECIFIC GRAVITY 1.019; UROBILINOGEN,URINE NEGATIVE mg/dL (<2.0)
[~2018-04-23 09:57] MED LIST: BUPIVACAINE HCL 0.25 % INJ/PF (2.5 MG/1 ML) 30 ML VIAL ONE; LACTATED RINGERS 1000 ML IV PRN
[2018-04-23] MEDS ORDERED: MIDAZOLAM 2 MG/2 ML INJ ONE ×2 (11:42→11:51)
[2018-04-23] MEDS ORDERED: MIDAZOLAM 2 MG/2 ML INJ IV ONE (11:50)
[2018-04-23] MEDS ORDERED: ACETAMINOPHEN 1,000 MG/100 ML RTUPB IV ONE (11:52)
[2018-04-23] MEDS ORDERED: PROPOFOL INJ 200 MG/20 ML VIAL IV ONE (11:52)
[2018-04-23] MEDS ORDERED: HYDROMORPHONE HCL INJ/PF 2 MG/ML AMPULE ONE (11:52)
[2018-04-23] MEDS ORDERED: FENTANYL CITRATE INJ/PF 100 MCG/2 ML AMPUL IV PRN ×3 (12:28)
[2018-04-23] MEDS ORDERED: PROMETHAZINE HCL INJ 25 MG/1 ML VIAL IV PRN ×3 (12:28→13:51)
[2018-04-23] MEDS ORDERED: DIPHENHYDRAMINE HCL 50 MG/ML VIAL IV PRN (12:28)
[2018-04-23] MEDS ORDERED: MEPERIDINE HCL/PF INJ 25 MG/1 ML DISP.SYRIN IV PRN (12:28)
[2018-04-23] MEDS ORDERED: ONDANSETRON HCL INJ/PF 4 MG/2 ML SDV IV PRN (12:28)
[2018-04-23] MEDS ORDERED: OXYCODONE-ACETAMINOPHEN 5-325 MG TABLET PO PRN ×3 (12:28→13:51)
[2018-04-23] MEDS: MEPERIDINE HCL/PF INJ 25 MG/1 ML DISP.SYRIN ONE ×2 (13:15→13:25)
[2018-04-23] MEDS: FENTANYL CITRATE INJ/PF 100 MCG/2 ML AMPUL ONE ×2 (13:20→13:30)
--- NOTE | 2018-04-23 13:21 | Operative Report ---
Operative Report DATE OF SURGERY: 04/23/18 PREOPERATIVE DIAGNOSIS: 1. Multiparity. 2. Completed family status. 3. Suhail ires permanent sterilization POSTOPERATIVE DIAGNOSIS: Same OPERATION: Laparoscopic tubal ligation (bilateral partial salpingectomy) SURGEON: NELIA SNELL ANESTHESIA: GA TISSUE REMOVED OR ALTERED: Partial right and left fallopian tube (fimbriated end) COMPLICATIONS: none ESTIMATED BLOOD LOSS: 20 ml INTRAOPERATIVE FINDINGS: Normal appearing uterus, bilateral tubes and ovaries PROCEDURE: Patient was taken to the operating room where general anesthesia was administered without difficulty. The patient was then prepared and draped in normal sterile fashion in dorsal lithotomy position. Next, a red Tuttle catheter was placed in the patient's bladder and left in place during the entire procedure. Approximately 300 mL's of clear urine was evacuated at the end of the procedure. Next, a bivalve speculum was placed in the patient's vagina and the anterior lip of the cervix was grasped with a single-tooth tenaculum. An acorn manipulator was then introduced into the endocervical canal and as a means to manipulate the uterus during the procedure. The speculum was then removed. Attention was then turned to the patient's abdomen where bupivacaine was inj ected into the umbilicus and a 5 mm vertical incision was made in the umbilicus. A 5 mm trocar sleeve and camera was then introduced into the patient's peritoneal cavity. Once placement was verified, the CO2 gas was turned on. The patient's abdomen was insufflated with CO2 gas. Evaluation of the patient's pelvis and abdomen revealed a normal-appearing uterus, bilateral tubes and ovaries. Pictures were taken. Next, attention was turned to placing a left lateral 5 mm trocar and sleeve. Was placed under direct visualization. Hemostasis was noted. The same was done on the right side. Next, a grasper was used to move the bowel out of the working field and the patient was placed in Trendelenburg. The right tube was grasped and a PDS Endoloop was used to ligate the emigrated end of the tube. The fallopian tube was transected and the suture cut. Hemostasis was noted. The partial tube was then passed off to the Orate. The same procedure was performed on the left side and hemostasis was also noted. The tube was also passed off to the OR tech. Pictures were taken after the procedure, as well as a picture of her liver, which the texture. Normal. The CO2 gas was then turned off and was allowed to escape from the patient's abdomen all instruments were then removed on the patient's abdomen. All 3 port sites were then closed in a subcuticular fashion with 4-0 Monocryl and Dermabond was placed over each incision. Attention was then returned to the patient's vagina where the uterine manipulator was removed from the patient's uterus and vagina. The single-tooth tenaculum was removed and bleeding was noted on the left side. Pressure and Monsel's were used to gain hemostasis. All instruments were then removed patient's vagina. The patient tolerated the procedure well. Sponge, lap, needle and instrument counts were correct x2. Patient was taken to the recovery room in stable condition.
[2018-04-23] MEDS: LORAZEPAM INJ 2 MG/1 ML VIAL ONE ×2 (13:35→13:45)
[2018-04-23] MEDS ORDERED: PROMETHAZINE HCL INJ 25 MG/1 ML VIAL ONE (13:38)
[2018-04-23] MEDS ORDERED: ONDANSETRON HCL INJ/PF 4 MG/2 ML SDV ONE (15:38)
[2018-04-23] MEDS ORDERED: KETOROLAC TROMETHAMINE 60 MG/2 ML SDV ONE (15:38)
[2018-04-23] MEDS ORDERED: GLYCOPYRROLATE 1 MG/5 ML SYRINGE ONE (15:38)
[2018-04-23] MEDS ORDERED: ROCURONIUM BROMIDE INJ 50 MG/5 ML VIAL IV ONE (15:38)
[2018-04-23] MEDS ORDERED: LIDOCAINE 2% INJ-PF (20 MG/ML) 2 ML AMPUL ONE (15:38)
[2018-04-23] MEDS ORDERED: SUCCINYLCHOLINE CHLORIDE INJ 200 MG/10 ML VIAL ONE (15:38)
[2018-04-23] MEDS ORDERED: NEOSTIGMINE METHYLSULFATE 10 MG/10 ML VIAL ONE (15:38)
[2018-04-23] MEDS ORDERED: DEXAMETHASONE SOD PHOSPHATE INJ 4 MG/1 ML VIAL ONE (15:38)
[2018-04-23 16:12] VITALS: BP 114/73
== END 2018-04-23 15:45 | disposition home or self-care (01) ==
LOC: OROUT 09:57
PROVIDERS: ATTEND Obstetrics & Gynecology
DX: Z30.2 Encounter for sterilization (principal); F17.210 Nicotine dependence, cigarettes, uncomplicated; J45.909 Unspecified asthma, uncomplicated; Z79.51 Long term (current) use of inhaled steroids; M79.7 Fibromyalgia; Z79.899 Other long term (current) drug therapy
CPT/HCPCS: 36415; 85027; 81005; 81025; 88302 ×2; 58670; J2250; J3490 ×3; J1100; J1885; J3010; J2175; J1170; J2060; J2550; J0330; J2405; S0020; J2704; J0131; 851

== ENCOUNTER 2019-02-05 08:04 | Emergency (ER) | payer MEDICAID ==
[2019-02-05] MEDS ORDERED: ACETAMINOPHEN 325 MG TABLET PO ONE (08:45)
[2019-02-05] MEDS ORDERED: NORMAL SALINE 1000 ML 2,000 ML IV ONE (08:46)
[2019-02-05] MEDS ORDERED: KETOROLAC TROMETHAMINE INJ/PF 30 MG/1 ML SDV IV ONE (08:46)
[2019-02-05] MEDS ORDERED: ONDANSETRON HCL INJ/PF 4 MG/2 ML SDV IV ONE ×2 (08:46→14:24)
[2019-02-05] MEDS ORDERED: FENTANYL CITRATE INJ/PF 100 MCG/2 ML AMPUL IV ONE (08:47)
[2019-02-05] MEDS ORDERED: FENTANYL CITRATE INJ/PF 100 MCG/2 ML AMPUL ONE (09:00)
[2019-02-05] MEDS ORDERED: ACETAMINOPHEN 325 MG TABLET ONE (09:00)
[2019-02-05] MEDS ORDERED: KETOROLAC TROMETHAMINE INJ/PF 30 MG/1 ML SDV ONE (09:00)
[2019-02-05] MEDS ORDERED: ONDANSETRON HCL INJ/PF 4 MG/2 ML SDV ONE (09:00)
[2019-02-05 09:01] LABS: ABSOLUTE LYMPHOCYTES (AUTO) 0.8 10^3/uL (0.5-4.7); ABSOLUTE MONOCYTES (AUTO) 0.1 10^3/uL (0.1-1.4); ABSOLUTE NEUT (AUTO) 4.5 10^3/uL (1.7-8.2); BASOPHILS % (AUTO) 0.4 % (0-2); EOSINOPHILS % (AUTO) 0.5 % (0-6); HEMATOCRIT 38.6 % (36.0-47.0); LYMPHOCYTES % (AUTO) 15.1 % (13-45); MEAN CORPUSCULAR HEMOGLOBIN 30.2 pg (27.0-33.4); MEAN CORPUSCULAR HGB CONC 33.8 g/dL (32.0-36.0); MEAN CORPUSCULAR VOLUME 89 fl (80-97); PLATELET COUNT 201 10^3/uL (150-450); RED BLOOD COUNT 4.31 10^6/uL (3.72-5.28); RED CELL DISTRIBUTION WIDTH 13.6 % (11.5-14.0); TOTAL CELLS COUNTED % (AUTO) 100 %; WHITE BLOOD COUNT 5.5 10^3/uL (4.0-10.5)
[2019-02-05 09:19] LABS: INTERNATIONAL RATION (INR) 0.98
[2019-02-05 09:21] LABS: D-DIMER 0.38 ug/mL (0.00-0.50)
[2019-02-05 09:28] LABS: VENOUS BLOOD HCO3 19.5 mmol/L (20-32); VENOUS BLOOD PH 7.42 (7.30-7.42)
[2019-02-05 09:30] LABS: ALBUMIN 4.4 g/dL (3.5-5.0); ALKALINE PHOSPHATASE 195 U/L (38-126); ANION GAP 11 (5-19); APPEARANCE,URINE CLEAR; ASPARTATE AMINO TRANSFERASE 83 U/L (14-36); BILIRUBIN,DIRECT 0.5 mg/dL (0.0-0.4); BILIRUBIN,TOTAL 1.5 mg/dL (0.2-1.3); BILIRUBIN,URINE NEGATIVE (NEGATIVE); BLOOD UREA NITROGEN 14 mg/dL (7-20); CALCIUM 9.2 mg/dL (8.4-10.2); CARBON DIOXIDE 22 mmol/L (22-30); CHLORIDE 102 mmol/L (98-107); COLOR,URINE YELLOW; GLUCOSE 116 mg/dL (75-110); GLUCOSE, URINE NEGATIVE (NEGATIVE); KETONES,URINE NEGATIVE (NEGATIVE); LEUKOCYTE ESTERASE,URINE NEGATIVE (NEGATIVE); NITRITE,URINE NEGATIVE (NEGATIVE); POTASSIUM 4.1 mmol/L (3.6-5.0); PROTEIN,URINE NEGATIVE (NEGATIVE); TOTAL PROTEIN 8.2 g/dL (6.3-8.2); URINE SPECIFIC GRAVITY 1.009; UROBILINOGEN,URINE NEGATIVE mg/dL (<2.0)
[2019-02-05] MEDS ORDERED: MORPHINE SULFATE 10 MG/ML INJ IV ONE (10:11)
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
--- NOTE | 2019-02-05 11:01 | RADIOLOGY REPORT (SQ) ---
EXAM DESCRIPTION: U/S RETROPERITON (RENAL/AORTA) COMPLETED DATE/TIME: 02/05/2019 10:43 am REASON FOR STUDY: r flank/R side pain COMPARISON: None. TECHNIQUE: Dynamic and static grayscale images acquired of the kidneys and bladder and recorded on P ACS. Additional selected color Doppler and spectral images recorded. LIMITATIONS: None. FINDINGS: RIGHT KIDNEY: Normal size, 12.5 cm. Normal echogenicity. Prominent renal pelvis but no t rue hydronephrosis. Small lower calyceal calculus. LEFT KIDNEY: Normal size, 12.4 cm. Normal echogenicity. No significant calculi. No hydronephrosis . BLADDER: No masses. Ureteral jets are seen bilaterally. OTHER FINDINGS: No other significant finding. IMPRESSION: Nonobstructing right renal calculus. Prominent right renal pelvis but no true hydroneph rosis. Bilateral ureteral jets are seen in the bladder. TECHNICAL DOCUMENTATION: JOB ID: [id number] [employer]- All Rights Reserved Reading location - IP/workstation name: [email or web address]
--- NOTE | 2019-02-05 11:04 | RADIOLOGY REPORT (SQ) ---
EXAM DESCRIPTION: U/S ABDOMEN LIMITED W/O DOP COMPLETED DATE/TIME: 02/05/2019 10:43 am REASON FOR STUDY: r side pain, eval RUQ COMPARISON: None. TECHNIQUE: Dynamic and static grayscale images acquired of the abdomen and recorded on PACS. Additio nal selected color Doppler and spectral images recorded. LIMITATIONS: None. FINDINGS: PANCREAS: No masses. Visualized pancreatic duct normal caliber. LIVER: No focal lesions. No intrahepatic ductal dilation. Increased echogenicity with decreased vis ualization of the portal triads. LIVER VASCULATURE: Normal directional flow of the main portal vein and hepatic veins. GALLBLADDER: No stones. Normal wall thickness. No pericholecystic fluid. ULTRASOUND-DETECTED OLSEN'S SIGN: Negative. INTRAHEPATIC DUCTS AND COMMON DUCT: CBD and intrahepatic ducts normal caliber. No filling defects. INFERIOR VENA CAVA: Normal flow. AORTA: No aneurysm. RIGHT KIDNEY: Normal size measuring 13.0 cm. Normal echogenicity. No solid or suspicious masses. Mi ld fullness of the renal pelvis. No caliceal dilation. . No calcifications. PERITONEAL AND RIGHT PLEURAL SPACE: No ascites or effusions. OTHER: No other significant findings. IMPRESSION: 1. Hepatic steatosis. 2. Mild fullness of the right renal pelvis. 3. Unremarkable gallbladder. TECHNICAL DOCUMENTATION: JOB ID: [id number] [employer]- All Rights Reserved Reading location - IP/workstation name: [email or web address]
--- NOTE | 2019-02-05 11:32 | RADIOLOGY REPORT (SQ) ---
EXAM DESCRIPTION: CHEST 2 VIEWS COMPLETED DATE/TIME: 02/05/2019 11:24 am REASON FOR STUDY: cough COMPARISON: None. EXAM PARAMETERS: NUMBER OF VIEWS: two views TECHNIQUE: Digital Frontal and Lateral radiographic views of the chest acquired. RADIATION DOSE: NA LIMITATIONS: none FINDINGS: LUNGS AND PLEURA: No opacities, masses or pneumothorax. No pleural effusion. MEDIASTINUM AND HILAR STRUCTURES: No masses or contour abnormalities. HEART AND VASCULAR STRUCTURES: Heart normal size. No evidence for failure. BONES: No acute findings. HARDWARE: None in the chest. OTHER: No other significant finding. IMPRESSION: No focal consolidation or other evidence of acute cardiopulmonary process. TECHNICAL DOCUMENTATION: JOB ID: [id number] [employer]- All Rights Reserved Reading location - IP/workstation name: [email or web address]
[2019-02-05] MEDS: MORPHINE SULFATE 10 MG/ML INJ IV ONE ×3 (12:31→13:12)
[2019-02-05] MEDS ORDERED: NORMAL SALINE 1000 ML 1,000 ML IV PRN (12:36)
--- NOTE | 2019-02-05 13:36 | RADIOLOGY REPORT (SQ) ---
EXAM DESCRIPTION: CTA CHEST COMPLETED DATE/TIME: 02/05/2019 1:13 pm REASON FOR STUDY: tachycardia, right flank right lower quadrant pain COMPARISON: Same day radiograph TECHNIQUE: CT scan of the chest performed using helical scanning technique with dynamic intravenous contrast injection. Images reviewed with lung, soft tissue and bone windows. Reconstructed coronal and sagittal MPR images reviewed. Additional 3 dimensional post-processing performed to develop Maximal Intensity Projection images (VT P). All images stored on PACS. All CT scanners at this facility use dose modulation, iterative reconstruction, and/or weight based d osing when appropriate to reduce radiation dose to as low as reasonably achievable (ALARA). [facility]: Dose Right [facility]: CareDose [facility]: Dose Right [facility]: Teradose 4D [facility]: [employer] CONTRAST TYPE AND DOSE: contrast/concentration: Isovue 350.00 mg/ml; Total Contrast Delivered: 70.0 ml; Total Saline Delivered: 80.0 ml Contrast bolus adequate for pulmonary arteries and aorta. RENAL FUNCTION: See abdomen RADIATION DOSE: CT Rad equipment meets quality standard of care and radiation dose reduction techniq ues were employed. CTDIvol: 13.2 - 27.6 mGy. DLP: 4917 mGy-cm. . LIMITATIONS: None. FINDINGS: LUNGS AND PLEURA: No masses, infiltrates, or pneumothorax. No pleural effusions or pleura l calcifications. AORTA AND GREAT VESSELS: No aneurysm. Contrast bolus not optimized for the aorta. HEART: No pericardial effusion. No significant coronary artery calcifications. PULMONARY ARTERIES: No emboli visualized in the main pulmonary arteries or the segmental branches. HILAR AND MEDIASTINAL STRUCTURES: No identified masses or abnormal nodes. HARDWARE: None in the chest. UPPER ABDOMEN: No significant findings. Limited exam. THYROID AND OTHER SOFT TISSUES: No masses. No adenopathy. BONES: No acute or significant finding. 3D MIPS: Confirm above findings. OTHER: No other significant finding. IMPRESSION: No evidence of pulmonary embolus or other acute intrathoracic process. COMMENT: Quality ID # 436: Final reports with documentation of one or more dose reduction techniques (e.g., Automated exposure control, adjustment of the mA and/or kV according to patient size, use of iterative reconstruction technique) TECHNICAL DOCUMENTATION: JOB ID: [id number] [employer]- All Rights Reserved Reading location - IP/workstation name: [email or web address]
--- NOTE | 2019-02-05 13:39 | EKG REPORT ---
SEVERITY:- BORDERLINE ECG - SINUS TACHYCARDIA PROBABLE LEFT ATRIAL ABNORMALITY BORDERLINE T WAVE ABNORMALITIES : Confirmed by: Jyoti Fernandes MD 05-Feb-2019 13:39:05
--- NOTE | 2019-02-05 13:43 | RADIOLOGY REPORT (SQ) ---
EXAM DESCRIPTION: CT ABD/PELVIS WITH IV ONLY COMPLETED DATE/TIME: 02/05/2019 1:13 pm REASON FOR STUDY: tachycardia, right flank right lower quadrant pain COMPARISON: 04/05/2015 TECHNIQUE: CT scan of the abdomen and pelvis performed using helical scanning technique with dynamic intravenous contrast injection. No oral contrast. Images reviewed with lung, soft tissue, and bone windows. Reconstructed coronal and sagittal MPR images reviewed. Delayed images for evaluation of the urinary system also acquired. All images stored on PACS. All CT scanners at this facility use dose modulation, iterative reconstruction, and/or weight based d osing when appropriate to reduce radiation dose to as low as reasonably achievable (ALARA). [facility]: Dose Right [facility]: CareDose [facility]: Dose Right [facility]: Teradose 4D [facility]: [employer] CONTRAST TYPE AND DOSE: Omnipaque 350 70 cc RENAL FUNCTION: Creatinine 0.56 RADIATION DOSE: . LIMITATIONS: None. FINDINGS: LOWER CHEST: See separate report of the CT of the chest. LIVER: Normal size. No masses. No dilated ducts. SPLEEN: Normal size. No focal lesions. PANCREAS: No masses. No significant calcifications. No adjacent inflammation or peripancreatic fluid collections. Pancreatic duct not dilated. GALLBLADDER: No identified stones by CT criteria. No inflammatory changes to suggest cholecystitis. ADRENAL GLANDS: No significant masses or asymmetry. RIGHT KIDNEY AND URETER: Ill-defined area of hypoattenuation in the interpolar region and extending t o the cortex measuring approximately 2.5 x 2.7 cm. No definite solid mass. No significant calcific ations. Fullness within the extrarenal pelvis without caliceal dilation, decreased from prior exam. LEFT KIDNEY AND URETER: No solid masses. No significant calcifications. Fullness of the extrarena l pelvis without caliceal dilation, similar to prior. AORTA AND VESSELS: No aneurysm. No dissection. Renal arteries, SMA, celiac without stenosis. RETROPERITONEUM: No retroperitoneal adenopathy, hemorrhage or masses. BOWEL AND PERITONEAL CAVITY: No masses or inflammatory changes. No free fluid or peritoneal masses. APPENDIX: Normal. PELVIS: No mass. No free fluid. Normal bladder. Cystic lesion within the right adnexum likely ovari an follicles. ABDOMINAL WALL: No masses. No hernias. BONES: No significant or acute findings. OTHER: No other significant finding. IMPRESSION: 1. Ill-defined cortical hypoattenuation within the right kidney which can be seen with pyelonephritis. Recommend correlation with urinalysis. 2. Fullness of the bilateral extrarenal pelves without evidence of obstruction, similar to priors. 3. No other evidence of acute intra-abdominal/pelvic process. TECHNICAL DOCUMENTATION: JOB ID: [id number] Quality ID # [id number]: Final reports with documentation of one or more dose reduction techniques (e.g., Au tomated exposure control, adjustment of the mA and/or kV according to patient size, use of iterative reconstruction technique) 2010 [employer]- All Rights Reserved Reading location - IP/workstation name: [email or web address]-
[2019-02-05] MEDS ORDERED: CEFTRIAXONE 1 GM/D5W RTU 1 GM/50 ML RTUPB IV ONE (14:16)
[2019-02-05 15:57] VITALS: BP 117/92
== END 2019-02-05 15:57 | disposition home or self-care (01) ==
LOC: ER 08:04
DX: N12 Tubulo-interstitial nephritis, not specified as acute or chronic (principal); R10.9 Unspecified abdominal pain; R11.0 Nausea; R05 Cough; F17.200 Nicotine dependence, unspecified, uncomplicated
CPT/HCPCS: 93005; 96376; 99284; 96361; 96375; 96365; 36415; 87040; 87086; 84703; 85025; 85610; 87077; 87088; 80053; 81001; 87186; 85379; 82803; 83605; 71046; 76770; 76705; 71275; 74177; 93010; J3490; J3010; J1885; J2270; J2405; J7030; J0696

== ENCOUNTER 2019-02-08 12:32 | Emergency (ER) | payer MEDICAID ==
[2019-02-08] MEDS ORDERED: OXYCODONE-ACETAMINOPHEN 5-325 MG TABLET PO ONE ×2 (13:23→18:20)
[2019-02-08] MEDS ORDERED: ONDANSETRON HCL INJ/PF 4 MG/2 ML SDV IV ONE (13:23)
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
[2019-02-08 14:24] LABS: ABSOLUTE BASOPHILS # (AUTO) 0.1 10^3/uL (0.0-0.2); ABSOLUTE EOSINOPHILS # (AUTO) 0.1 10^3/uL (0.0-0.6); ABSOLUTE LYMPHOCYTES (AUTO) 1.8 10^3/uL (0.5-4.7); ABSOLUTE MONOCYTES (AUTO) 0.4 10^3/uL (0.1-1.4); ABSOLUTE NEUT (AUTO) 4.9 10^3/uL (1.7-8.2); BASOPHILS % (AUTO) 0.7 % (0-2); HEMATOCRIT 38.3 % (36.0-47.0); LYMPHOCYTES % (AUTO) 24.6 % (13-45); MEAN CORPUSCULAR HEMOGLOBIN 30.4 pg (27.0-33.4); MEAN CORPUSCULAR HGB CONC 33.9 g/dL (32.0-36.0); MEAN CORPUSCULAR VOLUME 90 fl (80-97); MONOCYTES % (AUTO) 4.9 % (3-13); PLATELET COUNT 256 10^3/uL (150-450); RED BLOOD COUNT 4.27 10^6/uL (3.72-5.28); RED CELL DISTRIBUTION WIDTH 13.5 % (11.5-14.0); SEGMENTED NEUTROPHILS % (AUTO) 67.8 % (42-78); TOTAL CELLS COUNTED % (AUTO) 100 %; WHITE BLOOD COUNT 7.2 10^3/uL (4.0-10.5)
[2019-02-08 14:36] LABS: APPEARANCE,URINE SLIGHTLY-CLOUDY; BILIRUBIN,URINE NEGATIVE (NEGATIVE); COLOR,URINE YELLOW; GLUCOSE, URINE 50 mg/dL (NEGATIVE); KETONES,URINE NEGATIVE (NEGATIVE); LEUKOCYTE ESTERASE,URINE NEGATIVE (NEGATIVE); NITRITE,URINE NEGATIVE (NEGATIVE); PROTEIN,URINE NEGATIVE (NEGATIVE); URINE SPECIFIC GRAVITY 1.017; UROBILINOGEN,URINE NEGATIVE mg/dL (<2.0)
[2019-02-08 14:46] LABS: ALBUMIN 4.1 g/dL (3.5-5.0); ALKALINE PHOSPHATASE 184 U/L (38-126); ANION GAP 12 (5-19); ASPARTATE AMINO TRANSFERASE 38 U/L (14-36); BILIRUBIN,DIRECT 0.5 mg/dL (0.0-0.4); BILIRUBIN,TOTAL 0.8 mg/dL (0.2-1.3); BLOOD UREA NITROGEN 12 mg/dL (7-20); CALCIUM 9.4 mg/dL (8.4-10.2); CARBON DIOXIDE 21 mmol/L (22-30); CHLORIDE 105 mmol/L (98-107); GLUCOSE 107 mg/dL (75-110); POTASSIUM 4.8 mmol/L (3.6-5.0); TOTAL PROTEIN 7.8 g/dL (6.3-8.2)
[2019-02-08] MEDS ORDERED: DIPHENHYDRAMINE HCL 50 MG/ML VIAL IV ONE (16:02)
[2019-02-08] MEDS ORDERED: CEFTRIAXONE 1 GM/D5W RTU 1 GM/50 ML RTUPB IV ONE (18:21)
--- NOTE | 2019-02-08 19:46 | RADIOLOGY REPORT (SQ) ---
EXAM DESCRIPTION: U/S RETROPERITON LTD COMPLETED DATE/TIME: 02/08/2019 7:35 pm REASON FOR STUDY: worsening right flank pain COMPARISON: 02/05/2019 TECHNIQUE: Dynamic and static grayscale images acquired of the kidneys and bladder and recorded on P ACS. Additional selected color Doppler and spectral images recorded. LIMITATIONS: None. FINDINGS: RIGHT KIDNEY: Normal size, 12.3 cm. Normal echogenicity. No solid or suspicious jaiden s. Mild right hydronephrosis. No calcifications. LEFT KIDNEY: Normal size. Normal echogenicity. No solid or suspicious masses. No hydronephrosi s. No calcifications. BLADDER: Incompletely filled. Urinary jets are not seen. No bladder mass is appreciated. OTHER FINDINGS: No other significant finding. IMPRESSION: Right hydronephrosis. TECHNICAL DOCUMENTATION: JOB ID: [id number] [employer]- All Rights Reserved Reading location - IP/workstation name: [email or web address]
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
[2019-02-08 21:19] VITALS: BP 114/73
== END 2019-02-08 21:15 | disposition home or self-care (01) ==
LOC: ER 12:32
DX: B96.1 Klebsiella pneumoniae [K. pneumoniae] as the cause of diseases classified elsewhere (principal); R78.81 Bacteremia; N12 Tubulo-interstitial nephritis, not specified as acute or chronic; R10.9 Unspecified abdominal pain; R10.30 Lower abdominal pain, unspecified; R19.7 Diarrhea, unspecified; R11.0 Nausea; R30.0 Dysuria; R35.0 Frequency of micturition; R31.9 Hematuria, unspecified; J45.909 Unspecified asthma, uncomplicated
CPT/HCPCS: 99284; 96375; 96365; 36415; 87040; 87086; 83605; 84703; 85025; 80053; 81001; 76775; J1200; J2405; J0696; 87088

== ENCOUNTER 2019-06-24 07:56 | Day surgery (SDC) | payer MEDICAID ==
[2019-06-16 09:28] LABS: HEMATOCRIT 40.2 % (36.0-47.0); HEMOGLOBIN 13.9 g/dL (12.0-15.5); MEAN CORPUSCULAR HEMOGLOBIN 31.5 pg (27.0-33.4); MEAN CORPUSCULAR HGB CONC 34.6 g/dL (32.0-36.0); MEAN CORPUSCULAR VOLUME 91 fl (80-97); PLATELET COUNT 255 10^3/uL (150-450); RED CELL DISTRIBUTION WIDTH 13.6 % (11.5-14.0); WHITE BLOOD COUNT 9.3 10^3/uL (4.0-10.5)
[2019-06-16 09:34] LABS: APPEARANCE,URINE SLIGHTLY-CLOUDY; BILIRUBIN,URINE NEGATIVE (NEGATIVE); COLOR,URINE YELLOW; GLUCOSE, URINE NEGATIVE (NEGATIVE); KETONES,URINE NEGATIVE (NEGATIVE); LEUKOCYTE ESTERASE,URINE NEGATIVE (NEGATIVE); NITRITE,URINE NEGATIVE (NEGATIVE); PROTEIN,URINE 30 mg/dL (NEGATIVE); UROBILINOGEN,URINE NEGATIVE mg/dL (<2.0)
[~2019-06-24 07:56] MED LIST changes: -BUPIVACAINE HCL 0.25 % INJ/PF (2.5 MG/1 ML) 30 ML VIAL ONE; +LIDOCAINE 0.5% INJ-PF (5 MG/ML) 50 ML SDV SUBCUT PRN
[2019-06-24] MEDS ORDERED: FENTANYL CITRATE INJ/PF 100 MCG/2 ML AMPUL ONE (09:54)
[2019-06-24] MEDS ORDERED: ONDANSETRON HCL INJ/PF 4 MG/2 ML SDV ONE (09:54)
[2019-06-24] MEDS ORDERED: PROPOFOL INJ 200 MG/20 ML VIAL IV ONE (09:54)
[2019-06-24] MEDS ORDERED: MIDAZOLAM 2 MG/2 ML INJ ONE (09:54)
[2019-06-24] MEDS ORDERED: FENTANYL CITRATE INJ/PF 100 MCG/2 ML AMPUL IV PRN ×3 (10:40)
[2019-06-24] MEDS ORDERED: MEPERIDINE HCL/PF INJ 25 MG/1 ML DISP.SYRIN IV PRN (10:40)
[2019-06-24] MEDS ORDERED: MORPHINE SULFATE 10 MG/ML INJ IV PRN (10:40)
[2019-06-24] MEDS ORDERED: PROMETHAZINE HCL INJ 25 MG/1 ML VIAL IV PRN ×2 (10:40)
[2019-06-24] MEDS ORDERED: DIPHENHYDRAMINE HCL 50 MG/ML VIAL IV PRN (10:40)
[2019-06-24] MEDS ORDERED: OXYCODONE-ACETAMINOPHEN 5-325 MG TABLET PO PRN ×4 (10:40→10:52)
[2019-06-24] MEDS ORDERED: KETOROLAC TROMETHAMINE INJ/PF 30 MG/1 ML SDV IV PRN (10:52)
[2019-06-24] MEDS ORDERED: RINGERS SOLUTION,LACTATED 1,000 ML IV PRN (10:52)
[2019-06-24] MEDS ORDERED: IBUPROFEN 800 MG TABLET PO PRN (10:52)
--- NOTE | 2019-06-24 10:58 | Discharge Summary ---
Discharge Summary (SDC) - Discharge Final Diagnosis: Heavy menses Date of Surgery: 06/24/19 Discharge Date: 06/24/19 Condition: Good Prescriptions: Oxycodone HCl/Acetaminophen [Percocet 5-325 mg Tablet] 1 tab PO Q4HP PRN #20 tablet PRN Reason: Ibuprofen [Motrin 800 mg Tablet] 800 mg PO BIDP PRN #20 tablet PRN Reason: Referrals: KARUNA IZAGUIRRE MD [Primary Care Provider] - Discharge Diet: Regular Discharge Activity: Balance Activity w/Rest, Pelvic Rest, Slowly Increase Activity Report the Following to Your Physician Immediately: Fever over 101 Degrees, Unusual Bleeding
--- NOTE | 2019-06-24 11:01 | Operative Report ---
Operative Report DATE OF SURGERY: 06/24/19 PREOPERATIVE DIAGNOSIS: Heavy menses POSTOPERATIVE DIAGNOSIS: Same OPERATION: Hysteroscopy D&C NovaSure ablation SURGEON: BRYANNA CHAIDEZ ANESTHESIA: LMAC TISSUE REMOVED OR ALTERED: Uterine lining COMPLICATIONS: None ESTIMATED BLOOD LOSS: 20 cc INTRAOPERATIVE FINDINGS: Normal uterine cavity with a length of 4 6.5 cm in width of 4.3 cm PROCEDURE: Patient was taken the OR and placed in supine position. Anesthesia was induced. She is placed in dorsolithotomy position using Bo stirrups. A weighted speculum was placed in the vagina. The bladder was drained with a red rubber catheter. The anterior lip cervix was grasped with a tenaculum and sounded to 7 cm before and after the case. Cervix was gently dilated. Hysteroscope was inserted and a empty uterine cavity was noted. There was bleeding in the uterine cavity. Endocervical and endometrial curettings were obtained. The NovaSure device was placed tested and fired without incident. The cavity length was set at 4.5 cm and the width was 4.3 cm. At the end of the case a repeat hysteroscopy showed a well ablated uterine cavity. Uterus was once again sounded to 7 cm. All instruments were removed. Patient was placed back in supine position taken recovery in stable condition.
[2019-06-24] MEDS ORDERED: ACETAMINOPHEN 1,000 MG/100 ML RTUPB IV ONE (11:22)
[2019-06-24] MEDS ORDERED: KETOROLAC TROMETHAMINE INJ/PF 30 MG/1 ML SDV ONE (11:22)
[2019-06-24 13:44] VITALS: BP 116/72
[2019-06-24] MEDS ORDERED: DEXAMETHASONE SOD PHOSPHATE INJ 4 MG/1 ML VIAL ONE (14:42)
== END 2019-06-24 12:40 | disposition home or self-care (01) ==
LOC: OROUT 07:56
PROVIDERS: ATTEND Obstetrics & Gynecology
DX: N93.8 Other specified abnormal uterine and vaginal bleeding (principal); N92.0 Excessive and frequent menstruation with regular cycle; M79.7 Fibromyalgia; F17.210 Nicotine dependence, cigarettes, uncomplicated; Z79.899 Other long term (current) drug therapy
CPT/HCPCS: 36415; 85027; 81025; 81001; 88305 ×2; 00952; 58563; J2250; J1100; J3010; J1885; J2405; J2704; J0131; 952

== ENCOUNTER 2020-02-03 08:54 | Emergency (ER) | payer MEDICAID ==
[2020-02-03] MEDS ORDERED: DIPHENHYDRAMINE HCL 50 MG/ML VIAL IV ONE (09:38)
[2020-02-03] MEDS ORDERED: KETOROLAC TROMETHAMINE INJ/PF 30 MG/1 ML SDV IV ONE (09:38)
[2020-02-03] MEDS ORDERED: PROCHLORPERAZINE EDISYLATE INJ 10 MG/2 ML VIAL IV ONE (09:39)
[2020-02-03] MEDS ORDERED: CAFFEINE CITRATED INJ/PF 60 MG/3 ML SDV IV ONE (09:40)
[2020-02-03] MEDS: NORMAL SALINE 1000 ML 1,000 ML IV PRN ×2 (09:59→10:35)
[2020-02-03 10:26] LABS: ABSOLUTE LYMPHOCYTES (AUTO) 3.1 10^3/uL (0.5-4.7); ABSOLUTE MONOCYTES (AUTO) 0.4 10^3/uL (0.1-1.4); ABSOLUTE NEUT (AUTO) 4.6 10^3/uL (1.7-8.2); BASOPHILS % (AUTO) 0.2 % (0-2); EOSINOPHILS % (AUTO) 0.2 % (0-6); HEMATOCRIT 37.6 % (36.0-47.0); HEMOGLOBIN 13.2 g/dL (12.0-15.5); LYMPHOCYTES % (AUTO) 38.4 % (13-45); MEAN CORPUSCULAR HGB CONC 35.1 g/dL (32.0-36.0); MEAN CORPUSCULAR VOLUME 88 fl (80-97); MONOCYTES % (AUTO) 4.3 % (3-13); PLATELET COUNT 257 10^3/uL (150-450); RED BLOOD COUNT 4.25 10^6/uL (3.72-5.28); SEGMENTED NEUTROPHILS % (AUTO) 56.9 % (42-78); TOTAL CELLS COUNTED % (AUTO) 100 %; WHITE BLOOD COUNT 8.1 10^3/uL (4.0-10.5)
[2020-02-03 10:30] LABS: INTERNATIONAL RATION (INR) 0.94; PROTHROMBIN TIME 12.8 SEC (11.4-15.4)
[2020-02-03 10:53] LABS: ALBUMIN 4.2 g/dL (3.5-5.0); ALKALINE PHOSPHATASE 127 U/L (38-126); ANION GAP 9 (5-19); ASPARTATE AMINO TRANSFERASE 25 U/L (14-36); BILIRUBIN,DIRECT 0.3 mg/dL (0.0-0.4); BILIRUBIN,TOTAL 0.5 mg/dL (0.2-1.3); BLOOD UREA NITROGEN 13 mg/dL (7-20); CARBON DIOXIDE 20 mmol/L (22-30); CHLORIDE 109 mmol/L (98-107); GLUCOSE 114 mg/dL (75-110); POTASSIUM 4.2 mmol/L (3.6-5.0); TOTAL PROTEIN 7.3 g/dL (6.3-8.2)
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
[2020-02-03 11:24] VITALS: BP 120/64
== END 2020-02-03 11:36 | disposition home or self-care (01) ==
LOC: ER 08:54
DX: M54.31 Sciatica, right side (principal); M54.9 Dorsalgia, unspecified; R11.2 Nausea with vomiting, unspecified; M54.5 Low back pain; Z88.8 Allergy status to other drugs, medicaments and biological substances; Z79.899 Other long term (current) drug therapy; J45.909 Unspecified asthma, uncomplicated
CPT/HCPCS: 99283; 96361; 96374; 96375; 36415; 85025; 85610; 85730; 80053; J1200; J1885; J0780; J0706; J7030

== ENCOUNTER 2020-04-29 17:46 | Emergency (ER) | payer MEDICAID ==
[2020-04-29 18:08] VITALS: BP 136/90
[2020-04-29] MEDS ORDERED: ONDANSETRON 4 MG TAB.RAPDIS PO ONE (18:18)
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
[2020-04-29 19:57] LABS: ABSOLUTE EOSINOPHILS # (AUTO) 0.1 10^3/uL (0.0-0.6); ABSOLUTE LYMPHOCYTES (AUTO) 2.6 10^3/uL (0.5-4.7); ABSOLUTE MONOCYTES (AUTO) 0.3 10^3/uL (0.1-1.4); ABSOLUTE NEUT (AUTO) 3.9 10^3/uL (1.7-8.2); BASOPHILS % (AUTO) 0.5 % (0-2); EOSINOPHILS % (AUTO) 2.1 % (0-6); HEMATOCRIT 33.8 % (36.0-47.0); HEMOGLOBIN 11.7 g/dL (12.0-15.5); LYMPHOCYTES % (AUTO) 37.5 % (13-45); MEAN CORPUSCULAR HEMOGLOBIN 31.2 pg (27.0-33.4); MEAN CORPUSCULAR HGB CONC 34.8 g/dL (32.0-36.0); MEAN CORPUSCULAR VOLUME 90 fl (80-97); MONOCYTES % (AUTO) 4.6 % (3-13); PLATELET COUNT 284 10^3/uL (150-450); RED BLOOD COUNT 3.77 10^6/uL (3.72-5.28); RED CELL DISTRIBUTION WIDTH 13.1 % (11.5-14.0); SEGMENTED NEUTROPHILS % (AUTO) 55.3 % (42-78); TOTAL CELLS COUNTED % (AUTO) 100 %
[2020-04-29 20:15] LABS: ALBUMIN 4.5 g/dL (3.5-5.0); ALKALINE PHOSPHATASE 144 U/L (38-126); ANION GAP 6 (5-19); ASPARTATE AMINO TRANSFERASE 93 U/L (14-36); BILIRUBIN,DIRECT 0.3 mg/dL (0.0-0.4); BILIRUBIN,TOTAL 0.7 mg/dL (0.2-1.3); BLOOD UREA NITROGEN 11 mg/dL (7-20); CALCIUM 9.3 mg/dL (8.4-10.2); CARBON DIOXIDE 27 mmol/L (22-30); CHLORIDE 104 mmol/L (98-107); GLUCOSE 105 mg/dL (75-110); POTASSIUM 3.9 mmol/L (3.6-5.0); TOTAL PROTEIN 7.8 g/dL (6.3-8.2)
[2020-04-29 20:44] LABS: APPEARANCE,URINE CLOUDY; BILIRUBIN,URINE NEGATIVE (NEGATIVE); COLOR,URINE YELLOW; GLUCOSE, URINE NEGATIVE (NEGATIVE); KETONES,URINE NEGATIVE (NEGATIVE); LEUKOCYTE ESTERASE,URINE LARGE (NEGATIVE); NITRITE,URINE NEGATIVE (NEGATIVE); PROTEIN,URINE 100 mg/dL (NEGATIVE); URINE SPECIFIC GRAVITY 1.012; UROBILINOGEN,URINE NEGATIVE mg/dL (<2.0)
--- NOTE | 2020-04-29 21:11 | RADIOLOGY REPORT (SQ) ---
EXAM DESCRIPTION: U/S ABDOMEN LIMITED W/O DOP CLINICAL HISTORY: 29 years Female; Epigastric abdominal pain nausea TECHNIQUE: Abdominal ultrasound was performed. COMPARISON: None. FINDINGS: Pancreas: Only a small segment of the neck/body the pancreas is seen. The majority is obscured by overlying bowel gas. Liver: Diffuse increased echogenicity of the liver is noted consistent with fatty infiltration. The liver measures 16.3 cm in length.. Portal vein is patent with hepatopedal flow. Gallbladder: Gallbladder is unremarkable. The wall is 1.7 mm. Positive sonographic Chavez's is noted. No pericholecystic fluid. Common bile duct: 2.1 mm. Right kidney: The kidney measures 10.2 x 4.4 x 5 cm. Morphology is normal. Blood flow is present.. No hydronephrosis. Aorta:Visualized portions are within normal limits. IVC: Visualized portions are within normal limits. Ascites: No free fluid. IMPRESSION: 1. No gallstones. There is a sonographic Chavez's and the patient is tender on ultrasound evaluation of the gallbladder. 2. Fatty infiltration of the liver. 3. Overall poor visualization of the abdominal structures.
== END 2020-04-30 01:32 | disposition left against medical advice (07) ==
LOC: ER 17:46
DX: R10.10 Upper abdominal pain, unspecified (principal); Z91.040 Latex allergy status; Z87.442 Personal history of urinary calculi
CPT/HCPCS: 99281; 36415; 83690; 84703; 85025; 80053; 81001; 76705; S0119